=== PATIENT | female | born 1955 | race Caucasian/White ===

== ENCOUNTER → 2016-08-30 | Outpatient (CLI) | payer OTHER ==
[~2016-08-30] VITALS: Ht 157.5 cm; Wt 60.0 kg
[~2016-08-30] MED LIST: ACET65TA; CALC500T49 PO; ECOT325T5; IBUP200C PO; LEVA500T OR; LIDOCAINE 2% INJ 100 MG/5 ML SDV (FOR ANES.) As Ordered ONE; LR 1,000 ML IV SCH; PERC7.5T8 OR; PRAV40TA; PRAV40TA2 PO; PRIL20CA; PROPOFOL 200 MG/20 ML VIAL As Ordered ONE; TUMS500C PO; VITA100037 PO; [UNRECOGNIZED DRUG - OTHER] PO; fentaNYL 100 MCG/2 ML INJECTION (J3010) As Ordered ONE
--- NOTE | 2016-08-30 08:10 | ROOR ---
Patient Name: Inna Liu Procedure Date: 08/30/2016 7:29 AM Date of : 1955 Age: 60 Room: OP Gender: Female Note Status: Finalized Procedure: Upper GI endoscopy Indications: Nausea Providers: Navi Winchester MD Referring MD: ANA ESCAMILLA MD Requesting Provider: Medicines: Monitored Anesthesia Care Complications: No immediate complications. Procedure: Pre-Anesthesia Assessment: - Prior to the procedure, a History and Physical was performed, and patient medications and allergies were reviewed. The patient is competent. The risks and benefits of the procedure and the sedation options and risks were discussed with the patient. All questions were answered and informed consent was obtained. Patient identification and proposed procedure were verified by the physician, the nurse and the anesthesiologist in the procedure room. Mental Status Examination: alert and oriented. Airway Examination: normal oropharyngeal airway and neck mobility. CV Examination: regular rate and rhythm. Prophylactic Antibiotics: The patient does not require prophylactic antibiotics. Prior Anticoagulants: The patient has taken no previous anticoagulant or antiplatelet agents. ASA Grade Assessment: II - A patient with mild systemic disease. After reviewing the risks and benefits, the patient was deemed in satisfactory condition to undergo the procedure. The anesthesia plan was to use monitored anesthesia care (MAC). Immediately prior to administration of medications, the patient was re-assessed for adequacy to receive sedatives. The heart rate, respiratory rate, oxygen saturations, blood pressure, adequacy of pulmonary ventilation, and response to care were monitored throughout the procedure. The physical status of the patient was re-assessed after the procedure. The Endoscope was introduced through the mouth, and advanced to the third part of duodenum. The upper GI endoscopy was accomplished without difficulty. The patient tolerated the procedure well. Findings: The Z-line was regular and was found 30 cm from the incisors. A 5 cm hiatus hernia was present. Evidence of a Aj fundoplication was found at the gastroesophageal junction. The wrap appeared loose. This was traversed. The gastric body, prepyloric region of the stomach and pylorus were normal. The examined duodenum was normal. Impression: - Z-line regular, 30 cm from the incisors. - 5 cm hiatus hernia. - A Aj fundoplication was found. The wrap appears loose. - Normal gastric body, prepyloric region of the stomach and pylorus. - Normal examined duodenum. - No specimens collected. Recommendation: - Discharge patient to home. - Resume regular diet. Navi Winchester MD 08/30/2016 8:10:14 AM Number of Addenda: 0 Note Initiated On: 08/30/2016 7:29 AM Estimated Blood Loss: Estimated blood loss: none.
[2016-08-30 08:15] VITALS: BP 125/86
== END ==
LOC: M OPP 06:34
PROVIDERS: ATTEND Surgery
DX: R11.0 Nausea (principal); K44.9 Diaphragmatic hernia without obstruction or gangrene; R10.33 Periumbilical pain; E78.5 Hyperlipidemia, unspecified; Z98.890 Other specified postprocedural states; Z85.3 Personal history of malignant neoplasm of breast; Z92.3 Personal history of irradiation; Z87.19 Personal history of other diseases of the digestive system; Z80.1 Family history of malignant neoplasm of trachea, bronchus and lung; Z80.8 Family history of malignant neoplasm of other organs or systems; Z87.891 Personal history of nicotine dependence; Z88.0 Allergy status to penicillin; Z88.5 Allergy status to narcotic agent; Z88.2 Allergy status to sulfonamides
CPT/HCPCS: 43235; J3010

== ENCOUNTER → 2016-09-12 | Outpatient (CLI) | payer OTHER ==
[~2016-09-12] MED LIST changes: -LIDOCAINE 2% INJ 100 MG/5 ML SDV (FOR ANES.) As Ordered ONE; -LR 1,000 ML IV SCH; -PROPOFOL 200 MG/20 ML VIAL As Ordered ONE; -fentaNYL 100 MCG/2 ML INJECTION (J3010) As Ordered ONE
--- NOTE | 2016-09-12 09:34 | REPMRS ---
Patient History The patient states she had a clinical breast exam in 2015.Patient has history of cancer in the left breast at age 57 and has history of high-risk lesion on a previous biopsy at age 57. Family history of unknown cancer in father at age 50 or over and unknown cancer in 2 brothers at age 50 or over. High risk radio exam breast specimen, August 12, 2013. High risk localization of breast nodule of the left breast, August 12, 2013. Malignant radio exam breast specimen of the left breast, July 17, 2013. Malignant stereotatic loc for ea lesion of the left breast, July 17, 2013. Digital Mammo Screening Bilat: September 12, 2016 - Exam #: [id number] Bilateral CC and MLO view(s) were taken. Technologist: Shannan Liu Technologist Prior study comparison: September 07, 2015, bilateral digital mammo screening bilat performed at [facility]. September 09, 2014, digital mammo diagnostic bilateral performed at [facility]. March 14, 2014, digital mammo diagnostic bilateral performed at [facility]. FINDINGS: There are scattered fibroglandular densities. There has been no change in the appearance of the mammogram from the prior studies. There are stable post treatment changes in the left breast. There is a mild amount of scattered fibroglandular density which is fairly symmetric. There is no interval development of dominant mass, architectural distortion, or clustered microcalcification suggestive of malignancy. ASSESSMENT: BI-RADS/ACR category 1 mammogram. Negative. Recommendation Routine screening mammogram in 1 year (for women over age 40). This mammogram was interpreted with the aid of an FDA-approved computer-aided dectection system. Electronically Signed By: Rinku Wilkerson MD 09/12/16 0934
== END ==
LOC: M RAD 08:20
PROVIDERS: ATTEND Radiology Radiation Oncology
DX: Z12.31 Encounter for screening mammogram for malignant neoplasm of breast (principal); Z85.3 Personal history of malignant neoplasm of breast

== ENCOUNTER → 2016-09-12 | Outpatient (CLI) | payer OTHER | LOC: M ONCR 13:28 | PROVIDERS: ATTEND Radiology Radiation Oncology | DX: D05.12 Intraductal carcinoma in situ of left breast (principal) ==

== ENCOUNTER → 2017-01-13 | Outpatient (CLI) | payer OTHER ==
[2017-01-13 17:57] LABS: MEAN CORPUSCULAR HEMOGLOBIN 30.5 pg (27.0-33.0); MEAN CORPUSCULAR HGB CONC 32.3 g/dl (32.0-36.5); MEAN CORPUSCULAR VOLUME 94.4 fl (80.0-96.0); RED CELL DISTRIBUTION WIDTH 12.5 % (11.5-14.5); WHITE BLOOD COUNT 5.8 K/mm3 (4.0-10.0)
[2017-01-13 18:22] LABS: ALBUMIN 3.8 GM/DL (3.2-5.2); ALBUMIN/GLOBULIN RATIO 1.41 (1.00-1.93); ALKALINE PHOSPHATASE 108 U/L (45-117); ALT/SGPT 48 U/L (12-78); ANION GAP 7 MEQ/L (8-16); AST/SGOT 22 U/L (15-37); BILIRUBIN,TOTAL 0.4 MG/DL (0.2-1.0); BLOOD UREA NITROGEN 12 MG/DL (7-18); CALCIUM LEVEL 8.8 MG/DL (8.8-10.2); CARBON DIOXIDE LEVEL 28 MEQ/L (21-32); CHLORIDE LEVEL 109 MEQ/L (98-107); CHOLESTEROL LEVEL 169 MG/DL (<200); CREATININE FOR GFR 0.92 MG/DL (0.55-1.02); GLOMERULAR FILTRATION RATE > 60.0 (>45); GLUCOSE, FASTING 73 MG/DL (80-110); POTASSIUM SERUM 4.7 MEQ/L (3.5-5.1); SODIUM LEVEL 144 MEQ/L (136-145); TOTAL PROTEIN 6.5 GM/DL (6.4-8.2); TRIGLYCERIDES LEVEL 56 MG/DL (<150)
== END ==
LOC: M WUC 11:30
PROVIDERS: ATTEND Nurse Practitioner Family
DX: I10 Essential (primary) hypertension (principal); E55.9 Vitamin D deficiency, unspecified

== ENCOUNTER → 2017-03-08 | Outpatient (CLI) | payer OTHER ==
[~2017-03-08] MED LIST changes: -IBUP200C PO; +IBUP200C10 PO; -VITA100037 PO; +VITA100067 PO
--- NOTE | 2017-03-08 14:56 | RADONC ---
RADIATION ONCOLOGY FOLLOWUP NOTE DATE: 03/08/2017 CHART NUMBER: [id number] DIAGNOSIS: Left breast cancer. STAGE: 0, [id number]. ECOG PERFORMANCE STATUS: 0 FOLLOWUP NOTE: Ms. 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 The patient presents today reporting that she is doing quite well with no complaints at this time related to her radiation therapy or disease. She has no breast or bone pain. REVIEW OF SYSTEMS: The patient's review of systems is noncontributory. She denies nausea, vomiting, fevers, chills, night sweats, diplopia, headaches, anxiety or depression, anorexia, weight loss, visual disturbances, chest pain, urinary or bowel difficulties, bone pain, or neurological problems. PHYSICAL EXAMINATION: The patient is a well-developed, well-nourished white female in no acute distress. HEENT exam is normocephalic, atraumatic. Extraocular movements are intact. There is no palpable cervical, supraclavicular, infraclavicular, axillary, or inguinal lymphadenopathy present. Lungs are clear to auscultation and percussion. Heart has a regular rate and rhythm. Abdomen is benign with no hepatosplenomegaly, masses, or tenderness. Breast examination reveals no masses or discharge bilaterally. Skeletal examination reveals no tenderness to pressure or percussion of the bony skeleton. Extremities reveal no clubbing, cyanosis, or edema. Neurologic exam is grossly intact, as is the remainder of the physical examination. ASSESSMENT: The patient is clinically MITA at this time and was seen by us again in 6 months for further followup. She will also continue to be followed by her other physicians as well. cc: MD Navi Shepherd MD Amjab Sheikh, MD
== END ==
LOC: M ONCR 13:13
PROVIDERS: ATTEND Radiology Radiation Oncology
DX: Z09 Encounter for follow-up examination after completed treatment for conditions other than malignant neoplasm (principal); Z85.3 Personal history of malignant neoplasm of breast

== ENCOUNTER 2017-07-14 07:40 | Day surgery (SDC) | payer OTHER ==
[~2017-07-14] VITALS: Ht 157.5 cm; Wt 60.4 kg
[~2017-07-14 07:40] MED LIST changes: +PRAV20TA2 PO
[2017-07-14 08:30] LABS: MEAN CORPUSCULAR HEMOGLOBIN 29.8 pg (27.0-33.0); MEAN CORPUSCULAR HGB CONC 32.8 g/dl (32.0-36.5); MEAN CORPUSCULAR VOLUME 90.9 fl (80.0-96.0); PLATELET COUNT, AUTOMATED 234 10^3/uL (150-450); RED CELL DISTRIBUTION WIDTH 12.7 % (11.5-14.5); WHITE BLOOD COUNT 7.2 10^3/uL (4.0-10.0)
[2017-07-14] MEDS ORDERED: CEFAZOLIN SOD 1 GM in APPROPRIATE DILUENT 1 EA IV ONE (08:30)
[2017-07-14 08:45] LABS: ANION GAP 10 MEQ/L (8-16); BLOOD UREA NITROGEN 21 MG/DL (7-18); CALCIUM LEVEL 9.9 MG/DL (8.8-10.2); CARBON DIOXIDE LEVEL 28 MEQ/L (21-32); CHLORIDE LEVEL 107 MEQ/L (98-107); CREATININE FOR GFR 0.88 MG/DL (0.55-1.02); GLOMERULAR FILTRATION RATE > 60.0 (>45); GLUCOSE, FASTING 96 MG/DL (80-110); POTASSIUM SERUM 4.5 MEQ/L (3.5-5.1); SODIUM LEVEL 145 MEQ/L (136-145)
[2017-07-14] MEDS ORDERED: ACETAMINOPHEN 650 MG SUPP PR ONE (08:45)
[2017-07-14] MEDS ORDERED: PROPOFOL 200 MG/20 ML VIAL As Ordered ONE (09:20)
[2017-07-14] MEDS ORDERED: fentaNYL 100 MCG/2 ML INJECTION (J3010) As Ordered ONE (09:20)
[2017-07-14] MEDS ORDERED: LIDOCAINE 2% INJ 100 MG/5 ML SDV (FOR ANES.) As Ordered ONE (09:20)
[2017-07-14] MEDS ORDERED: MIDAZOLAM INJ 2 MG/2 ML VIAL (J2250) As Ordered ONE (09:20)
[2017-07-14] MEDS ORDERED: ACETAMINOPHEN 650 MG SUPP As Ordered ONE (09:21)
[2017-07-14] MEDS ORDERED: dexameTHASONE 4 MG/ML 1ML VIAL (J1100) As Ordered ONE (09:29)
[2017-07-14] MEDS ORDERED: ONDANSETRON 4MG/2ML VIAL (J2405) As Ordered ONE (09:29)
[2017-07-14] MEDS ORDERED: KETOROLAC 60 MG/2 ML VIAL (J1885) As Ordered ONE (09:36)
[2017-07-14] MEDS ORDERED: LIDOCAINE W/EPINEPHRINE 1% 20ML VIAL As Ordered ONE (09:37)
[2017-07-14] MEDS ORDERED: PERC5TAB12 PO (09:41)
[2017-07-14] MEDS ORDERED: MACR100C42 PO (09:41)
[2017-07-14] MEDS ORDERED: ePHEDrine SULFATE 25 MG/5 ML(5MG/ML) SYRINGE As Ordered ONE (09:46)
[2017-07-14] MEDS ORDERED: ONDANSETRON 4MG/2ML VIAL (J2405) IV PRN (11:15)
[2017-07-14] MEDS ORDERED: LR 1,000 ML IV SCH (11:15)
[2017-07-14] MEDS ORDERED: PERCOCET 5MG/325MG TAB PO PRN (11:15)
[2017-07-14] MEDS ORDERED: fentaNYL 100 MCG/2 ML INJECTION (J3010) IV PRN (11:15)
[2017-07-14 12:33] VITALS: BP 105/56
[2017-07-14] MEDS ORDERED: IBUPROFEN 800 MG TAB PO SCH (16:00)
--- NOTE | 2017-07-14 17:34 | RO ---
DATE OF PROCEDURE: 07/14/2017 Inna is a 61-year-old female with an extensive history of stress urinary incontinence and found to have significant cystocele on exam. After evaluation in the office with extensive counseling a decision was made for tension-free vaginal tape via an obturator approach. Cystoscopy and repair of the anterior vaginal wall. PREOPERATIVE DIAGNOSES: 1. Stress urinary incontinence. 2. Significant cystocele. POSTOPERATIVE DIAGNOSIS 2. Stress urinary incontinence. 2. Significant cystocele. PROCEDURES: 1. Tension-free vaginal taping via an obturator approach. 2. Cystoscopy. 3. Vaginal wall repair. ANESTHESIA: General. SURGEON: Dr. Juan Dickey COMPLICATIONS: None. ESTIMATED BLOOD LOSS: Less than 50 mL. PROCEDURE: After visiting with the patient and her family in the preop area. She was then taken to the operating room where general anesthetic was found to be adequate. She was then draped and prepped usual sterile fashion in dorsal lithotomy position. At this point a Callaway catheter was placed in the bladder and approximately 200 mL of clear urine was drained. We then placed a line at the level of the urethral meatus and a second line 2 cm above that line parallel fashion. The exit aurora for the TVT device was then marked 2 cm away from the inguinal fold. These areas was infiltrated with lidocaine epinephrine solution. We then placed two Allis at the apex of the vagina and one other Allis approximately 2-3 cm away from the urethral meatus. At this point that area was infiltrated with the operative lidocaine and epinephrine. Midline incision was made. The vaginal mucosa was then dissected off the bladder. The bladder was pushed anteriorly and medially and that area was imbricated using 2-0 Vicryl suture in [id number] fashion. At this point a Metzenbaum was used in a 45 degrees angle. The obturator foramen was punctured. We then placed a wing guide of the TVT device and the TVT device was then inserted and exited at the predetermined garcia. At this point a cystoscopy was performed. No evidence of any bladder injury was noted. The bladder was re-dranined and the opposite side done in similar fashion. Cystoscopy again performed. No evidence of any injury noted. At this point the TVT device was then adjusted. The mass suggested that with pressure placed on the bladder. After proper adjustment of the mesh ,the plastic sheath was removed and the excess mesh was then cut away. The vaginal mucosa was trimmed and the anterior vaginal mucosa was closed in an interrupted fashion using 2-0 Vicryl. Good hemostasis noted. Dermabond placed at the exit aurora of the TVT of the device and the lateral folds. The Callaway catheter was placed in the bladder. The bladder was drained and the Callaway catheter removed. The patient was then transferred to recovery room in stable condition.
== END 2017-07-14 12:45 | disposition home or self-care (01) ==
LOC: M SDC 07:40
PROVIDERS: ATTEND Obstetrics & Gynecology
DX: N39.3 Stress incontinence (female) (male) (principal); N81.10 Cystocele, unspecified; E78.5 Hyperlipidemia, unspecified; Z92.3 Personal history of irradiation; Z88.0 Allergy status to penicillin; Z88.2 Allergy status to sulfonamides; Z88.5 Allergy status to narcotic agent; Z79.899 Other long term (current) drug therapy
CPT/HCPCS: 36415; 57240; 57288; 80048; 85027; 86850; 86900; 86901; 88302; C1771; J0690; J1100; J1885; J2250; J2405; J3010

== ENCOUNTER → 2017-09-04 | Outpatient (CLI) | payer OTHER ==
[2017-09-04 13:33] LABS: BASO # 0.1 10^3/uL (0.0-0.2); BASO % 1.3 % (0.0-1.0); EOS # 0.4 10^3/uL (0.0-0.50); EOS % 6.1 % (0.0-3.0); HEMATOCRIT 41.3 % (36.0-47.0); HEMOGLOBIN 13.5 g/dl (12.0-16.0); IMMATURE GRANULOCYTE % 0.3 % (0-0); LYMPH # 1.6 10^3/uL (1.5-4.5); LYMPH % 26.9 % (24.0-44.0); MEAN CORPUSCULAR HEMOGLOBIN 30.2 pg (27.0-33.0); MEAN CORPUSCULAR HGB CONC 32.7 g/dl (32.0-36.5); MEAN CORPUSCULAR VOLUME 92.4 fl (80.0-96.0); MONO # 0.5 10^3/uL (0.0-0.8); MONO % 8.3 % (0.0-5.0); NEUTROPHILS # 3.4 10^3/uL (1.8-7.7); NEUTROPHILS % 57.1 % (36.0-66.0); PLATELET COUNT, AUTOMATED 239 10^3/uL (150-450); RED BLOOD COUNT 4.47 10^6/uL (4.00-5.40); RED CELL DISTRIBUTION WIDTH 12.6 % (11.5-14.5)
[2017-09-04 13:42] LABS: ALBUMIN 3.9 GM/DL (3.2-5.2); ALKALINE PHOSPHATASE 103 U/L (45-117); ALT/SGPT 28 U/L (12-78); ANION GAP 7 MEQ/L (8-16); AST/SGOT 23 U/L (7-37); BILIRUBIN,TOTAL 0.4 MG/DL (0.2-1.0); BLOOD UREA NITROGEN 13 MG/DL (7-18); CALCIUM LEVEL 8.4 MG/DL (8.8-10.2); CARBON DIOXIDE LEVEL 27 MEQ/L (21-32); CHLORIDE LEVEL 109 MEQ/L (98-107); CHOLESTEROL LEVEL 153 MG/DL (<200); CHOLESTEROL RISK RATIO 2.508 (<5); CREATININE FOR GFR 0.82 MG/DL (0.55-1.02); GLOMERULAR FILTRATION RATE > 60.0 (>45); GLUCOSE, FASTING 89 MG/DL (80-110); HDL CHOLESTEROL 61 MG/DL (>40); LDL CHOLESTEROL 79.8 MG/DL (<100); NON-HDL-C 92 MG/DL; POTASSIUM SERUM 4.5 MEQ/L (3.5-5.1); SODIUM LEVEL 143 MEQ/L (136-145); TOTAL PROTEIN 6.5 GM/DL (6.4-8.2); TRIGLYCERIDES LEVEL 61 MG/DL (<150)
[2017-09-04 13:59] LABS: TOTAL 25(OH) VITAMIN D 33.7 NG/ML (30.0-100.0)
[2017-09-04 15:02] LABS: ESTIMATED AVERAGE GLUCOSE 117 MG/DL (60-110); HEMOGLOBIN A1c 5.7 %
== END ==
LOC: M WUC 09:20
DX: E78.00 Pure hypercholesterolemia, unspecified (principal)

== ENCOUNTER → 2017-09-06 | Outpatient (CLI) | payer OTHER | LOC: M ONCR 13:04 | DX: Z08 Encounter for follow-up examination after completed treatment for malignant neoplasm (principal); Z85.3 Personal history of malignant neoplasm of breast | CPT/HCPCS: G0463 ==

== ENCOUNTER → 2017-09-14 | Outpatient (CLI) | payer OTHER | LOC: M WHC 14:51 | DX: M81.0 Age-related osteoporosis without current pathological fracture (principal) ==

== ENCOUNTER → 2017-09-22 | Outpatient (CLI) | payer OTHER | LOC: M RAD 08:33 | DX: Z12.31 Encounter for screening mammogram for malignant neoplasm of breast (principal) | CPT/HCPCS: 77067 ==

== ENCOUNTER → 2018-03-07 | Outpatient (CLI) | payer OTHER | LOC: M ONCR 13:35 | DX: D05.12 Intraductal carcinoma in situ of left breast (principal) | CPT/HCPCS: G0463 ==

== ENCOUNTER → 2018-05-31 | Outpatient (CLI) | payer OTHER ==
[2018-06-01 12:51] LABS: RUBELLA IgG QUALITATIVE IMMUNE (IMMUNE)
== END ==
LOC: M WUC 13:07
DX: Z02.1 Encounter for pre-employment examination (principal)
CPT/HCPCS: 86762

== ENCOUNTER → 2018-06-04 | Outpatient (CLI) | payer OTHER ==
[2018-06-04 12:53] LABS: BASO # 0.1 10^3/uL (0.0-0.2); BASO % 1.2 % (0.0-1.0); EOS # 0.3 10^3/uL (0.0-0.50); EOS % 4.5 % (0.0-3.0); HEMATOCRIT 42.3 % (36.0-47.0); HEMOGLOBIN 13.6 g/dl (12.0-15.5); IMMATURE GRANULOCYTE % 0.3 % (0-3.0); LYMPH # 1.6 10^3/uL (1.5-4.5); LYMPH % 24.4 % (24.0-44.0); MEAN CORPUSCULAR HEMOGLOBIN 29.7 pg (27.0-33.0); MEAN CORPUSCULAR HGB CONC 32.2 g/dl (32.0-36.5); MEAN CORPUSCULAR VOLUME 92.4 fl (80.0-96.0); MONO # 0.6 10^3/uL (0.0-0.8); MONO % 9.2 % (0.0-5.0); NEUTROPHILS % 60.4 % (36.0-66.0); PLATELET COUNT, AUTOMATED 239 10^3/uL (150-450); RED BLOOD COUNT 4.58 10^6/uL (4.00-5.40); RED CELL DISTRIBUTION WIDTH 13.2 % (11.5-14.5); WHITE BLOOD COUNT 6.6 10^3/uL (4.0-10.0)
[2018-06-04 13:28] LABS: ALBUMIN 3.7 GM/DL (3.2-5.2); ALBUMIN/GLOBULIN RATIO 1.28 (1.00-1.93); ALKALINE PHOSPHATASE 90 U/L (45-117); ALT/SGPT 23 U/L (12-78); ANION GAP 7 MEQ/L (8-16); AST/SGOT 20 U/L (7-37); BILIRUBIN,TOTAL 0.5 MG/DL (0.2-1.0); BLOOD UREA NITROGEN 16 MG/DL (7-18); CALCIUM LEVEL 8.4 MG/DL (8.8-10.2); CARBON DIOXIDE LEVEL 26 MEQ/L (21-32); CHLORIDE LEVEL 111 MEQ/L (98-107); CHOLESTEROL LEVEL 146 MG/DL (<200); CHOLESTEROL RISK RATIO 2.517 (<5); CREATININE FOR GFR 0.82 MG/DL (0.55-1.30); GLOMERULAR FILTRATION RATE > 60.0 (>45); GLUCOSE, FASTING 76 MG/DL (70-100); HDL CHOLESTEROL 58 MG/DL (>40); LDL CHOLESTEROL 76 MG/DL (<100); NON-HDL-C 88 MG/DL; POTASSIUM SERUM 4.5 MEQ/L (3.5-5.1); SODIUM LEVEL 144 MEQ/L (136-145); TOTAL PROTEIN 6.6 GM/DL (6.4-8.2); TRIGLYCERIDES LEVEL 60 MG/DL (<150)
== END ==
LOC: M WUC 10:15
DX: R53.83 Other fatigue (principal); I10 Essential (primary) hypertension; E78.2 Mixed hyperlipidemia; E55.9 Vitamin D deficiency, unspecified
CPT/HCPCS: 84443

== ENCOUNTER → 2018-07-06 | Outpatient (REF) | payer OTHER ==
[2018-07-06 14:11] LABS: APPEARANCE, URINE CLEAR (CLEAR); BACTERIA, URINE AUTO NEGATIVE (NEGATIVE); BILIRUBIN, URINE AUTO NEGATIVE (NEGATIVE); BLOOD, URINE BLOOD NEGATIVE (NEGATIVE); COLOR, URINE YELLOW (YELLOW); GLUCOSE, URINE (UA) AUTO NEGATIVE (NEGATIVE); KETONE, URINE AUTO NEGATIVE (NEGATIVE); LEUKOCYTE ESTERASE, URINE AUTO 1+ (NEGATIVE); MUCUS, URINE SMALL (NEGATIVE); NITRITE, URINE AUTO NEGATIVE (NEGATIVE); PROTEIN, URINE AUTO NEGATIVE (NEGATIVE); RBC, URINE AUTO 1 /HPF (0-3); SPECIFIC GRAVITY URINE AUTO 1.017 (1.002-1.035); SQUAMOUS EPITHELIAL CELL UR AU 1 /HPF (0-6); WBC, URINE AUTO 5 /HPF (0-3)
== END ==
LOC: M LAB REF 13:16
DX: N39.0 Urinary tract infection, site not specified (principal)

== ENCOUNTER → 2018-09-24 | Outpatient (CLI) | payer MEDICARE, OTHER ==
[~2018-09-24] MED LIST changes: -IBUP200C10 PO; +IBUP200C25 PO; +MACR100C42 PO; +PERC5TAB12 PO
--- NOTE | 2018-09-24 09:39 | REPMRS ---
Patient History The patient states she had a clinical breast exam in 2017. Family history of pancreatic cancer at age 50 or over in brother. High risk radio exam breast specimen, August 12, 2013. High risk localization of breast nodule of the left breast, August 12, 2013. Malignant radio exam breast specimen of the left breast, July 17, 2013. Malignant stereotatic loc for ea lesion of the left breast, July 17, 2013. Took tamoxifen for 2 months. 3D TOMOSYNTHESIS WAS PERFORMED. Digital Mammo Screening Bilat: September 24, 2018 - Exam #: [id number] Bilateral CC and MLO view(s) were taken. Technologist: Payal Andujar, Technologist Prior study comparison: September 22, 2017, bilateral digital mammo screening bilat performed at [facility]. September 12, 2016, bilateral digital mammo screening bilat performed at [facility]. FINDINGS: There are scattered fibroglandular densities. There is a fairly symmetric fibroglandular pattern in both breasts. There has been no interval development of masses, areas of architectural distortion or clusters of microcalcifications typical of malignancy. Assessment: BI-RADS/ACR category 2 mammogram. Benign Findings. Recommendation Routine screening mammogram of both breasts in 1 year (for women over age 40). This mammogram was interpreted with the aid of an FDA-approved computer-aided dectection system. Electronically Signed By: Edgar De La Torre MD 09/24/18 0939
== END ==
LOC: M RAD 08:48
PROVIDERS: ATTEND Physician Assistant Medical
DX: Z12.31 Encounter for screening mammogram for malignant neoplasm of breast (principal); Z80.0 Family history of malignant neoplasm of digestive organs; Z85.3 Personal history of malignant neoplasm of breast

== ENCOUNTER → 2018-11-20 | Outpatient (CLI) | payer MEDICARE ==
--- NOTE | 2018-11-20 16:45 | REP ---
Clinical: Trauma. Technique: AP, lateral, bilateral oblique and sunrise views right knee . Findings: Generalized age-related changes are appreciated. The osseous structures and joint spaces are intact. There is no evidence for acute fracture or dislocation. No joint effusion is appreciated. Surrounding soft tissues are unremarkable. No subcutaneous emphysema or radiodense foreign body. Impression: Generalized age-related changes. No acute fracture or dislocation. Electronically Signed by Calvin Foster MD 11/20/2018 04:36 P
== END ==
LOC: M WUC 16:20
PROVIDERS: ATTEND Physician Assistant
DX: S80.01XA Contusion of right knee, initial encounter (principal); X58.XXXA Exposure to other specified factors, initial encounter; Y92.9 Unspecified place or not applicable

== ENCOUNTER → 2019-02-18 | Outpatient (CLI) | payer MEDICARE, OTHER ==
[2019-02-18 13:13] LABS: BASO # 0.1 10^3/uL (0.0-0.2); BASO % 1.3 % (0.0-1.0); EOS # 0.4 10^3/uL (0.0-0.50); EOS % 6.5 % (0.0-3.0); HEMATOCRIT 41.1 % (36.0-47.0); HEMOGLOBIN 13.2 g/dl (12.0-15.5); LYMPH # 1.8 10^3/uL (1.5-4.5); LYMPH % 29.5 % (24.0-44.0); MEAN CORPUSCULAR HEMOGLOBIN 29.3 pg (27.0-33.0); MEAN CORPUSCULAR HGB CONC 32.1 g/dl (32.0-36.5); MEAN CORPUSCULAR VOLUME 91.1 fl (80.0-96.0); MONO # 0.5 10^3/uL (0.0-0.8); NEUTROPHILS # 3.2 10^3/uL (1.8-7.7); NEUTROPHILS % 53.4 % (36.0-66.0); PLATELET COUNT, AUTOMATED 239 10^3/uL (150-450); RED BLOOD COUNT 4.51 10^6/uL (4.00-5.40)
[2019-02-18 13:30] LABS: ALBUMIN 3.6 GM/DL (3.2-5.2); ALT/SGPT 27 U/L (12-78); BILIRUBIN,TOTAL 0.4 MG/DL (0.2-1.0); BLOOD UREA NITROGEN 14 MG/DL (7-18); CALCIUM LEVEL 8.7 MG/DL (8.8-10.2); CARBON DIOXIDE LEVEL 27 MEQ/L (21-32); CHLORIDE LEVEL 110 MEQ/L (98-107); CHOLESTEROL LEVEL 148 MG/DL (<200); CHOLESTEROL RISK RATIO 2.349 (<5); CREATININE FOR GFR 0.79 MG/DL (0.55-1.30); GLOMERULAR FILTRATION RATE > 60.0 (>45); GLUCOSE, FASTING 75 MG/DL (70-100); HDL CHOLESTEROL 63 MG/DL (>40); LDL CHOLESTEROL 75 MG/DL (<100); NON-HDL-C 85 MG/DL; POTASSIUM SERUM 4.6 MEQ/L (3.5-5.1); SODIUM LEVEL 142 MEQ/L (136-145); TOTAL PROTEIN 6.6 GM/DL (6.4-8.2); TRIGLYCERIDES LEVEL 50 MG/DL (<150)
== END ==
LOC: M WUC 09:38
PROVIDERS: ATTEND Physician Assistant Medical
DX: R53.83 Other fatigue (principal); I10 Essential (primary) hypertension; E78.2 Mixed hyperlipidemia

== ENCOUNTER → 2019-10-04 | Outpatient (CLI) | payer MEDICARE, OTHER ==
--- NOTE | 2019-10-04 15:02 | REPMRS ---
Patient History The patient states she has not had a clinical breast exam in over a year. Family history of pancreatic cancer at age 50 or over in brother. High risk radio exam breast specimen, August 12, 2013. High risk localization of breast nodule of the left breast, August 12, 2013. Malignant radio exam breast specimen of the left breast, July 17, 2013. Malignant stereotatic loc for ea lesion of the left breast, July 17, 2013. Took tamoxifen for 2 months. Digital Woman Screen Mammo: October 04, 2019 - Exam #: [id number] Bilateral CC and MLO view(s) were taken. Technologist: Payal Andujar, Technologist Prior study comparison: September 24, 2018, bilateral digital mammo screening bilat, performed at [facility]. September 22, 2017, bilateral digital mammo screening bilat, performed at [facility]. September 12, 2016, bilateral digital mammo screening bilat, performed at [facility]. FINDINGS: There are scattered fibroglandular densities. Stable post-treatment changes are noted on the left. There has been no change in the appearance of the mammogram from the prior studies. There is a mild amount of scattered fibroglandular density which is fairly symmetric. There is no interval development of dominant mass, architectural distortion, or grouped microcalcification suggestive of malignancy. 3-D tomosynthesis shows no additional findings. Assessment: BI-RADS/ACR category 2 mammogram. Benign Findings. Recommendation Routine screening mammogram of both breasts in 1 year (for women over age 40). This mammogram was interpreted with the aid of an FDA-approved computer-aided dectection system. Electronically Signed By: Rinku Wilkerson MD 10/04/19 [id number]
== END ==
LOC: M WHC 13:49
PROVIDERS: ATTEND Physician Assistant Medical
DX: Z12.31 Encounter for screening mammogram for malignant neoplasm of breast (principal)

== ENCOUNTER → 2020-02-21 | Outpatient (CLI) | payer MEDICARE, OTHER ==
[2020-02-21 11:55] LABS: BASO # 0.1 10^3/uL (0.0-0.2); BASO % 1.4 % (0.0-1.0); EOS # 0.4 10^3/uL (0.0-0.5); EOS % 4.9 % (0.0-3.0); HEMATOCRIT 41.8 % (36.0-47.0); HEMOGLOBIN 13.7 g/dl (12.0-15.5); LYMPH # 1.7 10^3/uL (1.5-5.0); LYMPH % 22.5 % (24.0-44.0); MEAN CORPUSCULAR HEMOGLOBIN 30.2 pg (27.0-33.0); MEAN CORPUSCULAR HGB CONC 32.8 g/dl (32.0-36.5); MEAN CORPUSCULAR VOLUME 92.3 fl (80.0-96.0); MONO # 0.8 10^3/uL (0.0-0.8); MONO % 10.1 % (0.0-5.0); NEUTROPHILS # 4.5 10^3/uL (1.5-8.5); PLATELET COUNT, AUTOMATED 237 10^3/uL (150-450); RED BLOOD COUNT 4.53 10^6/uL (4.00-5.40); WHITE BLOOD COUNT 7.4 10^3/uL (4.0-10.0)
[2020-02-21 12:45] LABS: ALBUMIN 3.6 GM/DL (3.2-5.2); ALT/SGPT 25 U/L (12-78); BILIRUBIN,TOTAL 0.4 MG/DL (0.2-1.0); BLOOD UREA NITROGEN 15 MG/DL (7-18); CARBON DIOXIDE LEVEL 28 MEQ/L (21-32); CHLORIDE LEVEL 111 MEQ/L (98-107); CHOLESTEROL LEVEL 155 MG/DL (<200); CHOLESTEROL RISK RATIO 2.421 (<5); CREATININE FOR GFR 0.92 MG/DL (0.55-1.30); FREE T4 0.89 NG/DL (0.76-1.46); GLOMERULAR FILTRATION RATE > 60.0 (>45); GLUCOSE, FASTING 81 MG/DL (70-100); HDL CHOLESTEROL 64 MG/DL (>40); LDL CHOLESTEROL 80 MG/DL (<100); NON-HDL-C 91 MG/DL; POTASSIUM SERUM 4.5 MEQ/L (3.5-5.1); SODIUM LEVEL 144 MEQ/L (136-145); TOTAL PROTEIN 6.4 GM/DL (6.4-8.2); TRIGLYCERIDES LEVEL 55 MG/DL (<150)
== END ==
LOC: M WUC 09:30
PROVIDERS: ATTEND Physician Assistant Medical
DX: R53.83 Other fatigue (principal); I10 Essential (primary) hypertension; E78.2 Mixed hyperlipidemia; Z79.899 Other long term (current) drug therapy

== ENCOUNTER → 2020-10-09 | Outpatient (CLI) | payer MEDICARE, OTHER ==
--- NOTE | 2020-10-09 11:06 | REPMRS ---
Patient History The patient states she has not had a clinical breast exam in over a year. Family history of pancreatic cancer at age 50 or over in brother. High risk radio exam breast specimen, August 12, 2013. High risk localization of breast nodule of the left breast, August 12, 2013. Malignant radio exam breast specimen of the left breast, July 17, 2013. Malignant stereotatic loc for ea lesion of the left breast, July 17, 2013. Took tamoxifen for 2 months. Digital Woman Screen Mammo: October 09, 2020 - Exam #: [id number] Bilateral CC and MLO view(s) were taken. Technologist: Daxa Mojica, Technologist Prior study comparison: October 04, 2019, bilateral digital woman screen mammo performed at [facility]. September 24, 2018, bilateral digital mammo screening bilat, performed at [facility]. September 22, 2017, bilateral digital mammo screening bilat, performed at [facility]. FINDINGS: There are scattered fibroglandular densities. The Volpara volumetric breast density category is:B. There is a 7 mm nodular density in the upper outer quadrant region of the right breast seen only on MLO view. This merits further evaluation. There are stable post treatment changes in the left breast. There has been no other change in the appearance of the mammogram from the prior studies. There is a mild amount of scattered fibroglandular density which is fairly symmetric. There is no other interval development of dominant mass, architectural distortion, or grouped microcalcification suggestive of malignancy. 3-D tomosynthesis shows no additional findings. Assessment: BI-RADS/ACR category 0 mammogram, Incomplete: Need additional imaging evaluation and/or prior mammograms for comparison. Recommendation Ultrasound and special view mammogram of the right breast. This mammogram was interpreted with the aid of an FDA-approved computer-aided dectection system. Electronically Signed By: Rinku Wilkerson MD 10/09/20 2048
== END ==
LOC: M WHC 09:55
PROVIDERS: ATTEND Physician Assistant Medical
DX: Z12.31 Encounter for screening mammogram for malignant neoplasm of breast (principal)

== ENCOUNTER → 2020-10-26 | Outpatient (CLI) | payer MEDICARE, OTHER ==
[2020-10-26 12:31] LABS: BASO # 0.1 10^3/uL (0.0-0.2); BASO % 2.1 % (0.0-1.0); EOS # 0.3 10^3/uL (0.0-0.5); HEMATOCRIT 42.3 % (36.0-47.0); HEMOGLOBIN 13.4 g/dl (12.0-15.5); LYMPH # 1.6 10^3/uL (1.5-5.0); LYMPH % 26.1 % (24.0-44.0); MEAN CORPUSCULAR HEMOGLOBIN 29.6 pg (27.0-33.0); MEAN CORPUSCULAR HGB CONC 31.7 g/dl (32.0-36.5); MEAN CORPUSCULAR VOLUME 93.6 fl (80.0-96.0); MONO # 0.6 10^3/uL (0.0-0.8); MONO % 9.4 % (2.0-8.0); NEUTROPHILS # 3.5 10^3/uL (1.5-8.5); NEUTROPHILS % 57.1 % (36.0-66.0); PLATELET COUNT, AUTOMATED 249 10^3/uL (150-450); RED BLOOD COUNT 4.52 10^6/uL (4.00-5.40); WHITE BLOOD COUNT 6.2 10^3/uL (4.0-10.0)
[2020-10-26 13:11] LABS: ALBUMIN 3.8 GM/DL (3.2-5.2); BILIRUBIN,TOTAL 0.4 MG/DL (0.2-1.0); CALCIUM LEVEL 9.3 MG/DL (8.8-10.2); CHOLESTEROL RISK RATIO 2.387 (<5); FREE T4 0.88 NG/DL (0.76-1.46); GLOMERULAR FILTRATION RATE 58.9 (>45); POTASSIUM SERUM 4.5 MEQ/L (3.5-5.1); THYROID STIMULATING HORMONE 2.23 uIU/ML (0.358-3.740); TOTAL PROTEIN 6.6 GM/DL (6.4-8.2)
== END ==
LOC: M WUC 09:13
PROVIDERS: ATTEND Physician Assistant Medical
DX: E78.2 Mixed hyperlipidemia (principal); I10 Essential (primary) hypertension; R53.83 Other fatigue

== ENCOUNTER → 2020-10-27 | Outpatient (CLI) | payer MEDICARE, OTHER ==
--- NOTE | 2020-10-27 15:46 | REP ---
INDICATION: ADDL VIEWS/RIGHT BREAST/NODULAR DENSITY. COMPARISON: 10/09/2020 as well as other prior exams. TECHNIQUE: Multiple spot compression views and tomographic sequences obtained right breast in various projections. Right breast ultrasound performed. FINDINGS: There is a persistent somewhat ill-defined nodule in the posterior upper outer quadrant of the right breast. This is approximately 9 cm from the nipple. Approximate diameter is 6-7 mm. Real-time sonographic evaluation of right upper outer quadrant demonstrates a hypoechoic nodule, taller than wide, at the 10 o'clock position approximately 9 cm from the nipple. It measures 4 x 7 x 7 mm. This is suspicious. IMPRESSION: BIRADS/ACR category 4 suspicious. Persistent nodule in the upper outer quadrant of the right breast on additional mammographic images, represents a hypoechoic nodule by ultrasound and appears suspicious. Recommend ultrasound-guided biopsy with postprocedure mammogram. This mammogram was interpreted with the aid of an FDA-approved computer-aided detection system. The patient letter being requested is M4. RECOMMENDATION: Recommend ultrasound-guided biopsy right breast nodule with postprocedure right breast mammogram. <Electronically signed by Edgar De La Torre > 10/27/20 2481
== END ==
LOC: M WHC 13:51
PROVIDERS: ATTEND Physician Assistant Medical
DX: Z12.31 Encounter for screening mammogram for malignant neoplasm of breast (principal); R92.8 Other abnormal and inconclusive findings on diagnostic imaging of breast
CPT/HCPCS: 76642; 77065; G0279

== ENCOUNTER → 2020-11-24 | Outpatient (CLI) | payer MEDICARE, OTHER ==
--- NOTE | 2020-11-24 11:10 | REP ---
INDICATION: RT BREAST NODULAR DENSITY,POST US GUIDED BIOPSY. Marker clip placement views. COMPARISON: Comparison mammography October 27, 2020. TECHNIQUE: Craniocaudal, laterally exaggerated craniocaudal, true mL and MLO views are obtained. This mammogram was interpreted with the aid of an FDA-approved computer-aided detection system. FINDINGS: Scattered fibroglandular elements are noted. Marker clip is seen in the upper outer quadrant of the right breast posteriorly where prior mammography showed the subtle nodular density. No hematoma is seen. The nodular density is no longer apparent. IMPRESSION: Marker clip in good position right breast. RECOMMENDATION: Biopsy result pending. <Electronically signed by Rinku Wilkerson > 11/24/20 1101
[2020-11-24 13:51] VITALS: BP 118/78
--- NOTE | 2020-11-24 15:38 | REP ---
INDICATION: RT BREAST NODULAR DENSITY,US GUIDED BIOPSY. COMPARISON: None. TECHNIQUE: The procedure was performed under the direct supervision of Dr. Wilkerson. The patient has a history of a persistent nodule in the upper-outer quadrant of the right breast seen on a previous ultrasound dated 10/27/2020. The risks and benefits of the procedure were explained to the patient and informed consent was obtained. The right breast nodule was localized using ultrasound guidance. The skin was prepped and draped in a sterile fashion. 1% Xylocaine was used as a local anesthetic. Using ultrasound guidance a 14-gauge coaxial needle biopsy system was inserted and6 core biopsy samples were obtained. A marker clip (HydroMARK shape 3) was placed at the biopsy site The patient tolerated the procedure well and there were no immediate complications. After the appropriate amount of monitored convalescence, the patient was discharged from the department. FINDINGS: None IMPRESSION: Ultrasound-guided right breast biopsy with marker clip placement (HydroMARK shape 3). <Electronically signed by Conner Desouza > 11/24/20 [id number] <Electronically signed by Rinku Wilkerson > 11/24/20 3227
== END ==
LOC: M WHCPRO 07:10
PROVIDERS: ATTEND Physician Assistant Medical
DX: D48.61 Neoplasm of uncertain behavior of right breast (principal)

== ENCOUNTER → 2021-01-01 | Outpatient (CLI) | payer MEDICARE, OTHER ==
--- NOTE | 2021-01-01 16:09 | REP ---
INDICATION: PREOP TESTING COMPARISON: 08/26/2015. TECHNIQUE: PA/Lateral FINDINGS: Lungs: Clear, no infiltrate. Heart: Normal in size. Mediastinum: Mediastinal silhouette unremarkable. Pleural angles: Unremarkable.. Bones and soft tissues: There are mild diffuse degenerative changes of the spine with accentuation of the thoracic kyphosis. IMPRESSION: No acute pulmonary disease. <Electronically signed by Edgar De La Torre > 01/01/21 3044
[2021-01-01 20:39] LABS: BASO # 0.1 10^3/uL (0.0-0.2); BASO % 1.4 % (0.0-1.0); EOS # 0.3 10^3/uL (0.0-0.5); EOS % 3.6 % (0.0-3.0); HEMATOCRIT 42.9 % (36.0-47.0); HEMOGLOBIN 13.5 g/dl (12.0-15.5); LYMPH # 1.9 10^3/uL (1.5-5.0); LYMPH % 26.3 % (24.0-44.0); MEAN CORPUSCULAR HEMOGLOBIN 29.9 pg (27.0-33.0); MEAN CORPUSCULAR HGB CONC 31.5 g/dl (32.0-36.5); MEAN CORPUSCULAR VOLUME 95.1 fl (80.0-96.0); MONO # 0.7 10^3/uL (0.0-0.8); MONO % 9.6 % (2.0-8.0); NEUTROPHILS # 4.3 10^3/uL (1.5-8.5); PLATELET COUNT, AUTOMATED 232 10^3/uL (150-450); RED BLOOD COUNT 4.51 10^6/uL (4.00-5.40); WHITE BLOOD COUNT 7.3 10^3/uL (4.0-10.0)
[2021-01-01 20:45] LABS: ALBUMIN 3.9 GM/DL (3.2-5.2); ALT/SGPT 29 U/L (12-78); BILIRUBIN,TOTAL 0.4 MG/DL (0.2-1.0); BLOOD UREA NITROGEN 18 MG/DL (7-18); CALCIUM LEVEL 8.8 MG/DL (8.8-10.2); CARBON DIOXIDE LEVEL 27 MEQ/L (21-32); CHLORIDE LEVEL 108 MEQ/L (98-107); CREATININE FOR GFR 0.86 MG/DL (0.55-1.30); GLOMERULAR FILTRATION RATE > 60.0 (>45); GLUCOSE, FASTING 89 MG/DL (70-100); POTASSIUM SERUM 3.7 MEQ/L (3.5-5.1); SODIUM LEVEL 142 MEQ/L (136-145); TOTAL PROTEIN 6.5 GM/DL (6.4-8.2)
== END ==
LOC: M WUC 14:45
PROVIDERS: ATTEND Physician Assistant Medical
DX: I10 Essential (primary) hypertension (principal); Z01.818 Encounter for other preprocedural examination

== ENCOUNTER → 2021-01-07 | Outpatient (CLI) | payer MEDICARE, OTHER ==
[~2021-01-07] MED LIST changes: +CETI10CH PO; +FOSA70TA PO
== END ==
LOC: M LABSMTC 11:21
PROVIDERS: ATTEND Anesthesiology
DX: Z01.812 Encounter for preprocedural laboratory examination (principal); Z20.822 Contact with and (suspected) exposure to COVID-19

== ENCOUNTER 2021-01-12 06:13 | Day surgery (SDC) | payer MEDICARE, OTHER ==
[~2021-01-12] VITALS: Ht 157.5 cm; Wt 65.0 kg
[~2021-01-12 06:13] MED LIST changes: +CLINDAMYCIN 900 MG in IV 1 EA IV ONE; +HEPARIN SOD (PORCINE) 5000UNITS/ML 1ML VIAL/SYRINGE SQ ONE; +LR 1,000 ML IV ONE
[2021-01-12] MEDS ORDERED: BUPIVACAINE HCL 0.25% 30ML VIAL As Ordered ONE (07:11)
[2021-01-12] MEDS ORDERED: LIDOCAINE 1% SDV 30ML VIAL As Ordered ONE (07:11)
[2021-01-12] MEDS ORDERED: propofoL 200 MG/20 ML VIAL As Ordered ONE (07:50)
[2021-01-12] MEDS ORDERED: LIDOCAINE 2% 100MG/5ML SDV (FOR ANES.) As Ordered ONE (07:50)
[2021-01-12] MEDS ORDERED: ONDANSETRON 4MG/2ML VIAL As Ordered ONE (07:50)
[2021-01-12] MEDS ORDERED: MIDAZOLAM INJ 2MG/2ML VIAL (J2250 PER 1MG) As Ordered ONE (07:50)
[2021-01-12] MEDS ORDERED: dexameTHASONE 4 MG/ML 1ML VIAL (J1100 PER 1MG) As Ordered ONE (07:50)
[2021-01-12] MEDS ORDERED: fentaNYL 100 MCG/2 ML INJECTION (J3010) As Ordered ONE (07:50)
[2021-01-12] MEDS ORDERED: HYDROmorphone HCL 2 MG/ML 1ML VIAL (J1170) As Ordered ONE (07:50)
[2021-01-12] MEDS ORDERED: ROCURONIUM BROMIDE 50 MG/5 ML VIAL As Ordered ONE (07:50)
[2021-01-12] MEDS ORDERED: ePHEDrine SULFATE 25 MG/5 ML(5MG/ML) SYRINGE As Ordered ONE (07:54)
[2021-01-12] MEDS ORDERED: ACETAMINOPHEN 1000MG 100ML IV BTL (OFIRMEV) (J0131 PER 10MG) As Ordered ONE (08:10)
[2021-01-12] MEDS ORDERED: SUGAMMADEX SODIUM 500 MG/5 ML VIAL (BRIDION) As Ordered ONE (08:22)
[2021-01-12] MEDS ORDERED: ULTR50TA8 PO (09:48)
[2021-01-12] MEDS ORDERED: METOCLOPRAMIDE INJ 10MG/2ML VIAL (J2765 PER 1) As Ordered ONE ×2 (09:51→11:01)
[2021-01-12] MEDS ORDERED: fentaNYL 100 MCG/2 ML INJECTION (J3010) IV PRN (10:10)
[2021-01-12] MEDS ORDERED: ONDANSETRON 4MG/2ML VIAL IV PRN (10:10)
[2021-01-12] MEDS ORDERED: LR 1,000 ML IV SCH (10:10)
[2021-01-12] MEDS ORDERED: oxyCODONE 5MG TAB PO PRN (10:10)
--- NOTE | 2021-01-12 10:56 | REP ---
INDICATION: RIGHT BREAST EXCISIONAL BIOPSY WITH WIRE PLACEMENT. COMPARISON: Comparison mammography October 27, 2020, October 09, 2020, and November 24, 2020.. TECHNIQUE: Six views including photograph so. FINDINGS: Specimen radiography demonstrates a Kopan's needle wire localization device adjacent to a soft tissue nodule and a needle biopsy marker clip all located within the specimen. IMPRESSION: Needle biopsy marker clip and nodule are seen in the specimen radiograph adjacent to the localizer wire. <Electronically signed by Rinku Wilkerson > 01/12/21 1054
[2021-01-12] MEDS ORDERED: METOCLOPRAMIDE INJ 10MG/2ML VIAL (J2765 PER 1) IV PRN (11:10)
[2021-01-12] MEDS ORDERED: SCOPOLAMINE 1MG TRANSDERMAL PATCH TOP ONE (11:50)
--- NOTE | 2021-01-12 13:39 | REP ---
INDICATION: RIGHT BREAST EXCISIONAL BIOPSY WITH WIRE PLACEMENT. COMPARISON: Comparison sonography October 27, 2020.. TECHNIQUE: Sonographic guidance. FINDINGS: Ultrasound guidance is provided to Dr. Castillo who performed a needle wire localization procedure under ultrasound guidance. IMPRESSION: Procedural imaging. <Electronically signed by Rinku Wilkerson > 01/12/21 [id number]
[2021-01-12] MEDS ORDERED: diphenhydrAMINE 50MG/ML VIAL (J1200) As Ordered ONE (14:26)
[2021-01-12] MEDS ORDERED: diphenhydrAMINE 50MG/ML VIAL (J1200) IV PRN (14:35)
[2021-01-12 15:55] VITALS: BP 123/69
[2021-01-20] MEDS ORDERED: ASPI81CH33 PO (13:55)
--- NOTE | 2021-01-23 19:06 | ROOPDOC ---
[facility] Report Of Operation Report of Operation DATE OF PROCEDURE: 01/12/21 PREPROCEDURE DIAGNOSES: RIGHT BREAST PAPILLARY LESION WITH ATYPIA POSTPROCEDURE DIAGNOSES: SAME PROCEDURE: RIGHT BREAST EXCISIONAL BIOPSY WITH INTRAOP WIRE PLACEMENT AND INTRAOP SPECIMEN RADIOGRAPHY SURGEON: DR. Ritu HUNTER ANESTHESIA: GENERAL ESTIMATED BLOOD LOSS: Approximately 50 mL. COMPLICATIONS: NONE REMARKS: WIRE, CLIP AND SOME CALCIFICATIONS SEEN IN THE SPECIMEN DESCRIPTION OF PROCEDURE: INDICATIONS: Ms. Liu is a 65-year-old woman who was found to have a suspicious right breast lesion on screening mammogram. This was evaluated with biopsy of the lesion done with radiology. The pathology came back as papillary neoplasm with atypia and excisional biopsy was recommended. Hydromark clip is noted in the right breast at 10:00 at 9CFN. She was medically cleared for surgery by her primary care doctor. Risks and possible complications of surgical procedure including bleeding, infection and injury to surrounding structures were explained to the patient and she wished to proceed. Consent was signed. My initials were placed on the operative site. Subcutaneous injection of 5000 units of heparin was done in Preop. DETAILS: Patient was taken to the operating room and placed on the operating room table. A sign in was called stating patients name, date of and the procedure to be done. Preoperative antibiotics were infused. Smooth induction of general anesthesia was done. Patients hands were extended on arm rests. Care was taken not to over extend the arms. Pillow was placed under the knees and a foam was placed under the heels. Sequential compression devices were placed and assured to function correctly. Procedure was started with right breast intraop wire localization. Appropriate time out was done and patients name, date of , and the procedure to be done were confirmed. Right breast was cleaned by me. Intraoperative ultrasound was used to confirm location of the Hydromark clip. Location of the clip was marked on the skin as well. 21 G Kopans Breast Lesion Localization Needle was used to place 25 cm wire. The wire was placed next to the clip. The end of the wire was passed slightly distal to the clip. The images were captured confirming adequate placement of the localizing wire. Studio Coordinator assisted with the wire placement. Next, patients right breast and axilla were prepped and draped in the usual fashion. Care was taken not to displace the wire. Appropriate time out was done again prior second part of the procedure. Patients name, date of , and the procedure to be done were confirmed. Next, local anesthetic using 1% lidocaine and 0.25 % Marcaine 50/50 mix was injected at the site of planned right periareolar incision. The incision was made with the scalpel. Subcutaneous skin flaps were raised and the guide wire was carefully pulled into the wound. Dissection was carries along the wire until the previously marked on the skin area of target lesion location was encountered. At this point, wider excision of the tissue surrounding the wire was done. The Hydromark clip was identified in the tissue with intraoperative hockey stick ultrasound probe. The end of the wire was identified with palpation. The excisional biopsy specimen was carefully removed from the breast keeping its proper orientation and moved to the back table where margins were marked with the surgical inking kit following the standard colors recommendations. Excised specimen measured 4.8 x 4.0 x 2.7 cm. Specimen was then placed on the grid and placed in [facility] Specimen Imaging System. The image revealed the wire, some calcifications, and the Hydromark in the specimen. The specimen was labeled with patients name and right excisional biopsy and sent to pathology. Next, the wound was irrigated thoroughly and adequate hemostasis was assured. Additional local anesthetic was injected into surrounding tissues. space was approximated with 2-0 Vicryl. The dermis was closed with 3-0 Vicryl and skin was closed with 4-0 Monocryl. Surgical glue was placed over the incision. Patient emerged from the anesthesia without any problems. Fluffs were placed over the operative site and patients chest was wrapped snuggly in the LAKESHA wrap. Sponge and instrument counts were done and were correct. Patient tolerated procedure well and was taken to recovery unit in stable condition. FLAQUITA HUNTER DO January 23, 2021 19:06
== END 2021-01-12 16:15 | disposition home or self-care (01) ==
LOC: M SDC 06:13
PROVIDERS: ATTEND Surgery
DX: C50.411 Malignant neoplasm of upper-outer quadrant of right female breast (principal); Z17.0 Estrogen receptor positive status [ER+]; E78.5 Hyperlipidemia, unspecified; Z85.3 Personal history of malignant neoplasm of breast; Z92.3 Personal history of irradiation; Z79.899 Other long term (current) drug therapy; Z13.79 Encounter for other screening for genetic and chromosomal anomalies; Z88.0 Allergy status to penicillin; Z88.2 Allergy status to sulfonamides; Z88.5 Allergy status to narcotic agent
CPT/HCPCS: 19125; 36415; 76942; 86850; 86900; 86901; 88307; 88341; 88342; J0131; J1100; J1170; J1200; J1644; J2250; J2405; J2765; J3010

== ENCOUNTER → 2021-01-21 | Outpatient (CLI) | payer MEDICARE, OTHER ==
[~2021-01-21] MED LIST changes: +ASPI81CH33 PO; -CLINDAMYCIN 900 MG in IV 1 EA IV ONE; -HEPARIN SOD (PORCINE) 5000UNITS/ML 1ML VIAL/SYRINGE SQ ONE; -LR 1,000 ML IV ONE; +ULTR50TA8 PO
== END ==
LOC: M LABSMTC 12:29
PROVIDERS: ATTEND Anesthesiology
DX: Z01.818 Encounter for other preprocedural examination (principal); Z20.822 Contact with and (suspected) exposure to COVID-19

== ENCOUNTER 2021-01-26 06:18 | Day surgery (SDC) | payer MEDICARE, OTHER ==
[~2021-01-26] VITALS: Ht 157.5 cm; Wt 63.9 kg
[~2021-01-26 06:18] MED LIST changes: +CLINDAMYCIN 900 MG in IV 1 EA IV ONE; +HEPARIN SOD (PORCINE) 5000UNITS/ML 1ML VIAL/SYRINGE SQ ONE; +LIDOCAINE 1% MDV 20ML VIAL SQ PRN; +LR 1,000 ML IV ONE
[2021-01-26] MEDS ORDERED: LIDOCAINE 2% 100MG/5ML SDV (FOR ANES.) As Ordered ONE (07:17)
[2021-01-26] MEDS ORDERED: propofoL 200 MG/20 ML VIAL As Ordered ONE (07:17)
[2021-01-26] MEDS ORDERED: ACETAMINOPHEN 1000MG 100ML IV BTL (OFIRMEV) (J0131 PER 10MG) As Ordered ONE (07:17)
[2021-01-26] MEDS ORDERED: ONDANSETRON 4MG/2ML VIAL As Ordered ONE ×2 (07:17→11:01)
[2021-01-26] MEDS ORDERED: dexameTHASONE 4 MG/ML 1ML VIAL (J1100 PER 1MG) As Ordered ONE (07:17)
[2021-01-26] MEDS ORDERED: fentaNYL 100 MCG/2 ML INJECTION (J3010) As Ordered ONE (07:18)
[2021-01-26] MEDS ORDERED: LIDOCAINE 1% SDV 30ML VIAL As Ordered ONE (07:18)
[2021-01-26] MEDS ORDERED: BUPIVACAINE HCL 0.25% 30ML VIAL As Ordered ONE (07:18)
[2021-01-26] MEDS ORDERED: MIDAZOLAM INJ 2MG/2ML VIAL (J2250 PER 1MG) As Ordered ONE (07:18)
[2021-01-26] MEDS ORDERED: SCOPOLAMINE 1MG TRANSDERMAL PATCH TOP ONE (08:00)
[2021-01-26] MEDS ORDERED: METHYLENE BLUE 0.5% (5MG/ML) 10 ML AMP (PROVAYBLUE) As Ordered ONE (09:40)
[2021-01-26] MEDS ORDERED: ePHEDrine SULFATE 25 MG/5 ML(5MG/ML) SYRINGE As Ordered ONE (10:20)
[2021-01-26] MEDS ORDERED: METOCLOPRAMIDE INJ 10MG/2ML VIAL (J2765 PER 1) As Ordered ONE (10:21)
[2021-01-26] MEDS ORDERED: METOCLOPRAMIDE INJ 10MG/2ML VIAL (J2765 PER 1) IV PRN (11:20)
[2021-01-26] MEDS ORDERED: ONDANSETRON 4MG/2ML VIAL IV PRN (11:20)
[2021-01-26] MEDS ORDERED: fentaNYL 100 MCG/2 ML INJECTION (J3010) IV PRN (11:20)
[2021-01-26] MEDS ORDERED: PERCOCET 5MG/325MG TAB PO PRN (11:20)
[2021-01-26] MEDS ORDERED: LR 1,000 ML IV SCH (11:20)
[2021-01-26 12:05] VITALS: BP 122/63
--- NOTE | 2021-01-27 13:14 | REP ---
INDICATION: dr van. right side. COMPARISON: None. TECHNIQUE: The procedure was performed under the direct supervision of Dr. De La Torre. The images were reviewed with Dr. De La Torre. Using topical anesthetic and sterile technique 1.016 mCi of technetium 99 filtered sulfur colloid was injected subdermally in 8 fractionated periareolar injections. Images obtained 1 hour after injection showed no axillary uptake. FINDINGS: None IMPRESSION: Right breast lymphoscintigraphy. There is no axillary uptake identified. <Electronically signed by Conner Desouza > 01/26/21 2333 <Electronically signed by Edgar De La Torre > 01/27/21 1310
== END 2021-01-26 13:22 | disposition home or self-care (01) ==
LOC: M SDC 06:18
PROVIDERS: ATTEND Surgery
DX: C50.911 Malignant neoplasm of unspecified site of right female breast (principal); Z88.0 Allergy status to penicillin; Z88.2 Allergy status to sulfonamides; Z88.5 Allergy status to narcotic agent; E78.49 Other hyperlipidemia; Z92.3 Personal history of irradiation; Z79.82 Long term (current) use of aspirin; Z79.899 Other long term (current) drug therapy
CPT/HCPCS: 36415; 38525; 78195; 86850; 86900; 86901; 88305; A9541; J0131; J1100; J1644; J2250; J2405; J2765; J3010; Q9968

== ENCOUNTER → 2021-01-28 | Outpatient (CLI) | payer MEDICARE, OTHER ==
[~2021-01-28] MED LIST changes: -CLINDAMYCIN 900 MG in IV 1 EA IV ONE; -HEPARIN SOD (PORCINE) 5000UNITS/ML 1ML VIAL/SYRINGE SQ ONE; -LIDOCAINE 1% MDV 20ML VIAL SQ PRN; -LR 1,000 ML IV ONE
--- NOTE | 2021-01-28 12:09 | RADONC.CN ---
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 She is seen today for consideration of adjuvant RT. Diagnosis/Treatment History Oncologic History Left breast DCIS pTis ER/MD+ Grade 1 s/p lumpectomy and adjuvant RT 48.6 Gy in 27 fractions to the left whole breast and 12 Gy in 6 fractions tumor bed boost from 10/10/13/-11/29/13. Patient then took tamoxifen for 3 months but discontinued due to MERCADO. 2020 Right breast cancer 10/09/20 Mammogram with 7 mm lesion in the upper outer right breast 11/24/20 Biopsy showing papillary neoplasm 01/12/21 Lumpectomy showing IDC and associated DCIS pT1c ER/MD+ HER2- Grade 2 margins negative but <1mm to DCIS 01/26/21 SLNB negative with 0/5 nodes involved Breast history: (1 interrupted tubal) Menses @ 11 Menopause @ 38 No OCP No HRT No IVF Interval History Here with her . Reports she had extensive skin reaction post treatment in 2013, moist peeling, took over 1 month to heal etc, but that she has no lingering skin concerns from this. She was placed on endocrine therapy with Dr. Thayer in 2013 but discontinued after 3 months due to headache, unclear of the agent, but thinks it was tamoxifen. She has minimal pain under the right arm. No pain in the right breast. Appetite good energy levels stable. Past Medical History: Hard of hearing HPL Kidney stones Past Surgical History: Hernia repair 2009 Salpinoophorectomy 1976 Family History: Father lung cancer Brother lung cancer Brother prostate cancer Social History: Never smoker Does not drink presently Allergies / Meds Allergies: Coded Allergies: Penicillins (Verified Allergy, Intermediate, hives, 01/12/21) Sulfa (Sulfonamide Antibiotics) (Verified Allergy, Intermediate, hives, 01/12/21) morphine (Verified Adverse Reaction, Intermediate, severe nausea and vomiting, 01/12/21) Home Meds Active Scripts Tramadol HCl (Ultram) 50 Mg Tablet, 50 MG PO Q6HP PRN for pain MDD 4 Tablet(s) for 3 Days, #10 TAB Prov:FLAQUITA CASTILLO DO 01/12/21 Reported Medications Aspirin (Aspirin) 81 Mg Tab.chew, 81 MG PO DAILY for pain for 30 Days, #30 TAB 01/20/21 Alendronate Sodium (Fosamax) 70 Mg Tablet, 70 MG PO QWEEK, TAB Monday01/07/21 Cetirizine HCl (Cetirizine HCl) 10 Mg Tab.chew, 10 MG PO DAILY, W 01/07/21 Pravastatin Sodium (Pravastatin Sodium) 20 Mg Tab, 20 MG PO QAM, TAB 07/06/17 Review of Systems General: Reports: Normal Appetite Constitutional: Denies: Chills, Fever, Night Sweats Eyes: Denies: Pain, Vision change HEENT: Denies: Head Aches, Dysphagia, Sore Throat Skin: Denies: Rash, Lesions, Bruising Pulmonary: Denies: Dyspnea, Cough Cardiovascular: Denies: Chest Pain, Palpitations, Edema Breast: Reports: Breast Skin Changes (Bruising), Breast Pain or Tenderness (Mild); Denies: New Breast Lumps / Masses, Nipple Retraction, Nipple Discharge Gastrointestinal: Denies: Nausea, Vomiting, Abdominal Pain, Diarrhea Genitourinary: Denies: Dysuria, Frequency, Incontinence Hematologic: Denies: Bruising, Petecchia, Enlarged Lymph Nodes Musculoskeletal: Denies: Neck pain, Back pain Neurological: Denies: Weakness, Numbness, Incoordination Psych: Reports: Mood Normal; Denies: Memory Issues Vital Signs Ht 62" Wt 142 lbs T 97.6 P 69RR 16 BP 97.56 O2 97% Pain 0 Fatigue 0 General Exam: Positive: Alert, Cooperative, No Acute Distress Eye Exam: Positive: PERRLA, EOMI Neck Exam: Positive: Supple; Negative: Lymphadenopathy Chest Exam: Positive: Clear to auscultation Heart Exam: Positive: Rate Normal Breast Exam: Positive: Symmetric Bilaterally (Mild ptosis), Lumps or Masses (Palpable seroma left upper outer quadrant mild tenderness. No lumps or masses BL), Skin Changes (Bruising present lateral right breast, right periareolar incision healing well. Right axillary incision healing well. Left breast without sequelae of RT visible. Intact RT tattoos midline left and right lateral); Negative: Nipple Retraction, Nipple Discharge Abdomen Exam: Positive: Soft Extremity Exam: Negative: Edema Neuro Exam: Positive: Normal Gait, Normal Speech, Cranial Nerves 3-12 NL Psych Exam: Positive: Mental status NL Diagnostic and Laboratory Diagnostic Review Radiologic images, relevant labs and pathology reports were personally reviewed and discussed with Ms. Liu. Assessment and Plan Impression Ms. 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 She is seen today for consideration of adjuvant RT. Stage Right upper outer breast cancer pT1cN0(sn)M0 ER/MD+ HER2- Grade 2 close margin to DCIS <1mm Performance Status ECOG 1 Plan We had an extensive discussion with Ms. Liu regarding the diagnosis at hand and available therapeutic options. Inna is recovering well from her surgeries. She has minimal pain and some s welling on the right. She is seeing Dr. Castillo on Monday. Unclear if oncotype is being sent, however the probability of oncotype >26 in her case is only 8% per nomogram based on her pathology. She also mentioned that she would not want chemotherapy if indicated. She would however be willing to try endocrine therapy again and so would like a referral to medical oncology to discuss this. I believe Dr. Castillo has placed this referral, but if there is inordinate delay I would be happy to follow up on this for Inna. For adjuvant treatment I recommended WBI 40 Gy in 15 fractions with a 10 Gy in 5 fraction tumor bed boost. We also discussed the alternative of APBI for which she would be cautionary per AIDEN guidelines based on the close margin to DCIS. We discussed the logistics of receiving radiation therapy in detail including the need for a 1-time planning session. This can occur in ~2 weeks giving her additional time to heal. We reviewed the side effects of treatment in detail including fatigue, skin reaction, late fibrosis and pneumonitis. After discussing the risks, benefits and alternatives to radiation therapy, Ms. Liu was amenable to pursuing radiotherapy. All questions were answered to the patient's satisfaction. We instructed the patient that if there were any questions,concerns or changes in clinical status in the interim to contact us. Recommendations Adjuvant WBI 40 Gy in 15 fractions + 10 Gy in 5 fraction tumor bed boost Simulation around 02/08/21 Will assist with medical oncology referral if needed Billing Statement Total time of [46] minutes was spent preparing for the visit [2], obtaining HPI [7], examining the patient [5], reviewing diagnostic tests [8], discussing management options [15], coordinating care [2], and writing this note [7]. AXEL WIGGINS MD Jan 28, 2021 12:08
== END ==
LOC: M ONCR 10:03
PROVIDERS: ATTEND General Practice
DX: C50.411 Malignant neoplasm of upper-outer quadrant of right female breast (principal); Z79.82 Long term (current) use of aspirin; Z79.899 Other long term (current) drug therapy; Z80.1 Family history of malignant neoplasm of trachea, bronchus and lung; Z88.0 Allergy status to penicillin; Z88.2 Allergy status to sulfonamides; Z88.5 Allergy status to narcotic agent

== ENCOUNTER → 2021-02-15 | Outpatient (CLI) | payer MEDICARE, OTHER ==
[~2021-02-15] MED LIST changes: +CETI-24
--- NOTE | 2021-02-15 16:11 | REP ---
INDICATION: BREAST CA. COMPARISON: None. TECHNIQUE/RADIOTRACER AND DOSE: 22.0 mCi of Technetium-99m MDP was injected and standard whole-body bone scanning is acquired. FINDINGS: There is a normal distribution of skeletal tracer with uptake in bilateral kidneys and in the urinary bladder. There is no evidence to suggest skeletal metastatic disease. There is osteoarthritic facet uptake in the posterior elements of the cervical spine on the right and mild degenerative uptake is seen in the lumbosacral junction. There is mild arthritic uptake in both acromioclavicular joints. Moderate osteoarthritic uptake is seen in the left greater than right knee. There is arthropathy associated uptake in the small joints of the right foot medially. IMPRESSION: No evidence to suggest skeletal metastatic disease. Degenerative and osteoarthritic uptake seen.. <Electronically signed by Rinku Wilkerson > 02/15/21 1390
== END ==
LOC: M RAD 11:41
PROVIDERS: ATTEND Internal Medicine Hematology & Oncology
DX: C50.919 Malignant neoplasm of unspecified site of unspecified female breast (principal)
CPT/HCPCS: 78306; A9503

== ENCOUNTER → 2021-02-19 | Outpatient (CLI) | payer MEDICARE, OTHER ==
--- NOTE | 2021-02-19 16:16 | DEXAMM ---
INDICATION: BREAST CA,STARTING AI. COMPARISON: The most recent comparison densitometry study is from September 14, 2017. The most remote is from 22 February 2002.. TECHNIQUE: Bone density was measured using dual-energy x-ray absorptionmetry (DEXA). FINDINGS: AP SPINE L1-L4 BMD 1.014 g/cm2 Young Adult T-Score -1.5 Age Matched Z-Score 0.2. LT FEMUR, TOTAL BMD 0.819 g/cm2 Young Adult T-Score -1.5 Age Matched Z-Score -0.2. LT NECK BMD 0.796 g/cm2 Young Adult T-Score -1.7 Age Matched Z-Score -0.2. RT FEMUR, TOTAL BMD 0.667 g/cm2 Young Adult T-Score -2.7 Age Matched Z-Score -1.4. RT NECK BMD 0.687 g/cm2 Young Adult T-Score -2.5 Age Matched Z-Score -1.0. IMPRESSION: There is low bone density of the spine. There is low bone density of the left hip. There is osteoporosis of the right hip. The density of the spine has increased 6.3% since the initial exam on February 22, 2002. The density of the spine increased 1.5% since most recent exam on September 14, 2017. The density of the left hip has decreased 6.0% since initial exam on February 22, 2002. The density of the left hip has decreased 1.6% since most recent exam on September 14, 2017. The density of the right hip has increased 1.2% since the initial exam on February 22, 2002. The density of the right hip has decreased 2.1% since the most recent exam on September 14, 2017. FOLLOW-UP: Recommendation for the next bone density exam: 2 years. <Electronically signed by Rinku Wilkerson > 02/19/21 1995
== END ==
LOC: M WHC 15:16
PROVIDERS: ATTEND Internal Medicine Hematology & Oncology
DX: C50.919 Malignant neoplasm of unspecified site of unspecified female breast (principal); Z79.811 Long term (current) use of aromatase inhibitors

== ENCOUNTER → 2021-02-24 | Outpatient (RCR) | payer MEDICARE, OTHER ==
[~2021-02-24] MED LIST changes: +CALC1TAB26 PO; +LETR2.5T2 PO
== END ==
LOC: M ONCR 02-09 10:25
PROVIDERS: ATTEND General Practice
DX: C50.411 Malignant neoplasm of upper-outer quadrant of right female breast (principal)

== ENCOUNTER 2021-03-23 12:57 | Outpatient (RCR) | payer MEDICARE, OTHER ==
[2021-03-24] MEDS ORDERED: CALC1TAB26 PO (10:29)
[2021-03-24] MEDS ORDERED: LETR2.5T2 PO (10:29)
== END 2021-03-27 ==
LOC: M ONCR 12:57
PROVIDERS: ATTEND General Practice
DX: C50.411 Malignant neoplasm of upper-outer quadrant of right female breast (principal)

== ENCOUNTER → 2021-07-29 | Outpatient (CLI) | payer MEDICARE, OTHER ==
[~2021-07-29] MED LIST changes: +GASTROGRAFIN SOLUTION 30ML (Q9963) As Ordered ONE; +ISOVUE-370 76% 100ML VIAL As Ordered ONE
--- NOTE | 2021-08-01 03:20 | REP ---
INDICATION: PERIUMBICAL ABD PAIN. COMPARISON: 12/20/2015 TECHNIQUE: Axial contrast-enhanced images from the lung bases to the pubic symphysis using oral and 100 cc Isovue 370 intravenous contrast material. Sagittal and coronal reformations along with precontrast and delayed images of the abdomen obtained. This CT examination was performed using the following dose reduction techniques: Automated exposure control, adjustment of mA and/or kv according to the patient's size, and the use of iterative reconstruction technique. FINDINGS: Lung bases are essentially clear with minimal chronic appearing scarring at the basilar right middle lobe. Large hiatal hernia containing fluid level and debris at the distal esophagus. Liver demonstrates mild fatty infiltration without focal hepatic lesion. Spleen, pancreas, gallbladder, bilateral adrenal glands and kidneys are normal. The enteric system including stomach, small, and large bowel appears normal. No evidence for obstruction or acute inflammatory process. Normal terminal ileum and appendix are identified in the right lower quadrant. Chronic 1.3 cm fat containing periumbilical hernia noted without acute changes. Pelvis demonstrates normal bladder and evidence for prior hysterectomy. No ascites. No free air. No intraperitoneal or retroperitoneal adenopathy. Abdominal aorta and vasculature appear normal. Musculoskeletal structures demonstrate moderate age-related degenerative changes without acute osseous abnormality. IMPRESSION: No acute abdominopelvic pathology appreciated. Small fat containing periumbilical hernia. Moderate to large hiatal hernia. <Electronically signed by Calvin Foster > 08/01/21 [id number]
== END ==
LOC: M RAD 13:51
DX: R10.30 Lower abdominal pain, unspecified (principal); K44.9 Diaphragmatic hernia without obstruction or gangrene
CPT/HCPCS: 74178; Q9963; Q9967

== ENCOUNTER → 2021-09-22 | Outpatient (CLI) | payer MEDICARE, OTHER ==
[~2021-09-22] MED LIST changes: -GASTROGRAFIN SOLUTION 30ML (Q9963) As Ordered ONE; -ISOVUE-370 76% 100ML VIAL As Ordered ONE
== END ==
LOC: M ONCR 10:49
PROVIDERS: ATTEND General Practice
DX: D05.12 Intraductal carcinoma in situ of left breast (principal); C50.411 Malignant neoplasm of upper-outer quadrant of right female breast; Z92.3 Personal history of irradiation; Z88.0 Allergy status to penicillin; Z88.2 Allergy status to sulfonamides; Z88.5 Allergy status to narcotic agent; Z79.899 Other long term (current) drug therapy

== ENCOUNTER → 2021-10-11 | Outpatient (CLI) | payer MEDICARE, OTHER | LOC: M WHC 08:40 | PROVIDERS: ATTEND Surgery | DX: C50.911 Malignant neoplasm of unspecified site of right female breast (principal) | CPT/HCPCS: 77066; G0279 ==

== ENCOUNTER → 2022-03-22 | Outpatient (CLI) | payer MEDICARE, OTHER | LOC: M ONCR 09:41 | PROVIDERS: ATTEND General Practice | DX: C50.411 Malignant neoplasm of upper-outer quadrant of right female breast (principal); Z79.82 Long term (current) use of aspirin; Z79.899 Other long term (current) drug therapy; Z88.0 Allergy status to penicillin; Z88.1 Allergy status to other antibiotic agents; Z88.2 Allergy status to sulfonamides; Z88.5 Allergy status to narcotic agent; Z92.3 Personal history of irradiation ==

== ENCOUNTER → 2022-04-20 | Outpatient (REF) | payer MEDICARE, OTHER | LOC: M LAB REF 12:08 | PROVIDERS: ATTEND Physician Assistant Medical | DX: N39.0 Urinary tract infection, site not specified (principal) ==

== ENCOUNTER → 2022-05-03 | Outpatient (CLI) | payer MEDICARE, OTHER ==
[~2022-05-03] MED LIST changes: +ALEN70TA87 PO; -FOSA70TA PO
== END ==
LOC: M WHC 09:36
PROVIDERS: ATTEND Specialist
DX: Z13.820 Encounter for screening for osteoporosis (principal); M85.88 Other specified disorders of bone density and structure, other site; M85.851 Other specified disorders of bone density and structure, right thigh; M85.852 Other specified disorders of bone density and structure, left thigh

== ENCOUNTER → 2022-09-09 | Outpatient (CLI) | payer MEDICARE, OTHER | LOC: M RAD 11:41 | PROVIDERS: ATTEND Physician Assistant | DX: K42.9 Umbilical hernia without obstruction or gangrene (principal) ==

== ENCOUNTER → 2022-10-13 | Outpatient (CLI) | payer MEDICARE, OTHER | LOC: M WHC 09:08 | PROVIDERS: ATTEND Nurse Practitioner Women's Health | DX: C50.911 Malignant neoplasm of unspecified site of right female breast (principal); N60.92 Unspecified benign mammary dysplasia of left breast; Z91.89 Other specified personal risk factors, not elsewhere classified; Z86.000 Personal history of in-situ neoplasm of breast | CPT/HCPCS: 77066; G0279 ==

== ENCOUNTER → 2022-10-26 | Outpatient (CLI) | payer MEDICARE, OTHER ==
[~2022-10-26] MED LIST changes: -CETI-24; +CETI-24 PO
== END ==
LOC: M RAD 09:11
PROVIDERS: ATTEND Physician Assistant
DX: Z01.818 Encounter for other preprocedural examination (principal); Z20.822 Contact with and (suspected) exposure to COVID-19; I51.7 Cardiomegaly

== ENCOUNTER → 2022-10-26 | Outpatient (CLI) | payer MEDICARE, OTHER | LOC: M LABSMTC 07:42 | PROVIDERS: ATTEND Anesthesiology | DX: Z01.812 Encounter for preprocedural laboratory examination (principal); Z20.822 Contact with and (suspected) exposure to COVID-19 ==

== ENCOUNTER 2022-10-31 10:48 | Day surgery (SDC) | payer MEDICARE, OTHER ==
[~2022-10-31] VITALS: Ht 154.9 cm; Wt 57.2 kg
[~2022-10-31 10:48] MED LIST changes: +CLINDAMYCIN 900 MG in IV 1 EA IV ONE; +LIDOCAINE 2% 100MG/5ML SDV (FOR ANES.) As Ordered ONE; +MIDAZOLAM INJ 2MG/2ML VIAL As Ordered ONE; +ONDANSETRON 4MG 2ML VIAL As Ordered ONE; +ROCURONIUM BROMIDE 50MG/5ML VIAL As Ordered ONE; +fentaNYL 100 MCG/2 ML INJECTION As Ordered ONE; +propofoL 200 MG/20 ML VIAL As Ordered ONE
[2022-10-31] MEDS ORDERED: BUPIVACAINE/EPIN 0.25% 30ML VIAL As Ordered ONE (10:56)
[2022-10-31] MEDS ORDERED: LR 1,000 ML IV SCH ×2 (11:05→13:10)
[2022-10-31] MEDS ORDERED: SCOPOLAMINE 1MG TRANSDERMAL PATCH TOP SCH (11:35)
[2022-10-31] MEDS ORDERED: KETOROLAC 60MG 2ML VIAL As Ordered ONE (12:19)
[2022-10-31] MEDS ORDERED: SUGAMMADEX SODIUM 500 MG/5 ML VIAL (BRIDION) As Ordered ONE (12:19)
[2022-10-31] MEDS ORDERED: ACETAMINOPHEN 1000MG 100ML IV BAG As Ordered ONE (12:21)
[2022-10-31] MEDS ORDERED: ePHEDrine SULFATE 25 MG/5 ML(5MG/ML) SYRINGE As Ordered ONE (12:28)
[2022-10-31] MEDS ORDERED: PHENYLephrine 500MCG 5ML (100MCG/ML) SYRINGE As Ordered ONE (12:28)
[2022-10-31] MEDS ORDERED: ONDANSETRON 4MG 2ML VIAL IV PRN (13:10)
[2022-10-31] MEDS ORDERED: HYDROMORPHONE HCL 0.5 MG/ 0.5 ML SYRINGE IV PRN (13:10)
[2022-10-31] MEDS ORDERED: oxyCODONE 5MG TAB PO PRN (13:10)
[2022-10-31] MEDS ORDERED: fentaNYL 100 MCG/2 ML INJECTION IV PRN (13:10)
[2022-10-31] MEDS ORDERED: NORCO, ANEXSIA 5/325MG TABLET (HYDROcodone/ACETAMINOPHEN) PO PRN (13:45)
[2022-10-31] MEDS ORDERED: METOCLOPRAMIDE INJ 10MG/2ML VIAL IV STA (13:49)
[2022-10-31 15:05] VITALS: BP 118/56
== END 2022-10-31 15:35 | disposition home or self-care (01) ==
LOC: M SDC 10:48
PROVIDERS: ATTEND Surgery
DX: K43.0 Incisional hernia with obstruction, without gangrene (principal); E78.5 Hyperlipidemia, unspecified; Z85.3 Personal history of malignant neoplasm of breast; Z92.3 Personal history of irradiation; Z79.899 Other long term (current) drug therapy; Z88.0 Allergy status to penicillin; Z88.2 Allergy status to sulfonamides; Z88.5 Allergy status to narcotic agent
CPT/HCPCS: 49592; J0131; J1100; J1885; J2250; J2370; J2405; J2765; J3010; S2900

== ENCOUNTER → 2023-03-24 | Outpatient (CLI) | payer MEDICARE, OTHER ==
[~2023-03-24] MED LIST changes: -CLINDAMYCIN 900 MG in IV 1 EA IV ONE; -LIDOCAINE 2% 100MG/5ML SDV (FOR ANES.) As Ordered ONE; -MIDAZOLAM INJ 2MG/2ML VIAL As Ordered ONE; -ONDANSETRON 4MG 2ML VIAL As Ordered ONE; -ROCURONIUM BROMIDE 50MG/5ML VIAL As Ordered ONE; -fentaNYL 100 MCG/2 ML INJECTION As Ordered ONE; -propofoL 200 MG/20 ML VIAL As Ordered ONE
== END ==
LOC: M ONCR 09:51
PROVIDERS: ATTEND General Practice
DX: C50.411 Malignant neoplasm of upper-outer quadrant of right female breast (principal); Z63.4 Disappearance and death of family member; Z71.2 Person consulting for explanation of examination or test findings; Z79.811 Long term (current) use of aromatase inhibitors; Z79.899 Other long term (current) drug therapy; Z88.0 Allergy status to penicillin; Z88.1 Allergy status to other antibiotic agents; Z88.2 Allergy status to sulfonamides; Z88.5 Allergy status to narcotic agent; Z92.3 Personal history of irradiation; Z98.890 Other specified postprocedural states

== ENCOUNTER → 2023-10-17 | Outpatient (CLI) | payer MEDICARE, OTHER | LOC: M WHC 12:37 | PROVIDERS: ATTEND Nurse Practitioner Women's Health | DX: Z12.31 Encounter for screening mammogram for malignant neoplasm of breast (principal); Z85.3 Personal history of malignant neoplasm of breast | CPT/HCPCS: 77066; G0279 ==

== ENCOUNTER 2024-01-11 09:20 | Day surgery (SDC) | payer MEDICARE, OTHER ==
[~2024-01-11] VITALS: Ht 157.5 cm; Wt 60.6 kg
[2024-01-11] MEDS ORDERED: fentaNYL 100 MCG/2 ML INJECTION As Ordered ONE (10:11)
[2024-01-11] MEDS ORDERED: propofoL 200 MG/20 ML VIAL As Ordered ONE (10:11)
[2024-01-11] MEDS ORDERED: ROCURONIUM BROMIDE 50MG/5ML VIAL As Ordered ONE (10:11)
[2024-01-11] MEDS ORDERED: LIDOCAINE 2% 100MG/5ML SDV (FOR ANES.) As Ordered ONE (10:11)
[2024-01-11] MEDS ORDERED: ONDANSETRON 4MG 2ML VIAL As Ordered ONE (10:11)
[2024-01-11] MEDS ORDERED: MIDAZOLAM INJ 2MG/2ML VIAL As Ordered ONE (10:11)
[2024-01-11] MEDS ORDERED: SUGAMMADEX SODIUM 500 MG/5 ML VIAL (BRIDION) As Ordered ONE (10:12)
[2024-01-11] MEDS ORDERED: ACETAMINOPHEN 1000MG 100ML IV BAG As Ordered ONE (10:12)
[2024-01-11] MEDS ORDERED: KETOROLAC 60MG 2ML VIAL As Ordered ONE (10:12)
[2024-01-11] MEDS: LR 1,000 ML IV SCH (10:33)
[2024-01-11] MEDS: ceFAZolin SOD 2 GM in IV 1 EA IV ONE (10:56)
[2024-01-11] MEDS: SCOPOLAMINE 1MG TRANSDERMAL PATCH As Ordered ONE (11:08)
[2024-01-11] MEDS ORDERED: HYDROMORPHONE HCL 0.5 MG/ 0.5 ML SYRINGE IV PRN (12:10)
[2024-01-11] MEDS ORDERED: LR 1,000 ML IV SCH (12:10)
[2024-01-11] MEDS ORDERED: dexmedeTOMIDine (4MCG/ML)200MCG/50ML BTL (PRECEDEX) As Ordered ONE (12:31)
[2024-01-11] MEDS: ONDANSETRON 4MG 2ML VIAL IV PRN (12:43)
[2024-01-11] MEDS: METOCLOPRAMIDE INJ 10MG/2ML VIAL IV PRN (13:04)
[2024-01-11] MEDS: fentaNYL 100 MCG/2 ML INJECTION IV PRN (13:05)
[2024-01-11] MEDS: oxyCODONE 5MG TAB PO PRN (13:31)
[2024-01-11] MEDS ORDERED: LACTATED RINGER'S 1000 ML IV ONE (14:40)
[2024-01-11] MEDS ORDERED: PROMETHAZINE 25MG/ML 1ML VIAL IV PRN (14:40)
[2024-01-11 15:50] VITALS: BP 143/70; TEMP 97.1; O2SAT 97
== END 2024-01-11 15:50 | disposition home or self-care (01) ==
LOC: M SDC 09:20
PROVIDERS: ATTEND Surgery
DX: K42.9 Umbilical hernia without obstruction or gangrene (principal); E78.00 Pure hypercholesterolemia, unspecified; Z79.899 Other long term (current) drug therapy; Z85.3 Personal history of malignant neoplasm of breast; Z92.21 Personal history of antineoplastic chemotherapy; Z92.3 Personal history of irradiation; Z90.710 Acquired absence of both cervix and uterus; Z88.2 Allergy status to sulfonamides; Z88.0 Allergy status to penicillin; Z88.5 Allergy status to narcotic agent
CPT/HCPCS: 49591; 88302; 93005; C1781; J0131; J0665; J0690; J1100; J1885; J2250; J2405; J2765; J3010

== ENCOUNTER → 2024-03-26 | Outpatient (CLI) | payer MEDICARE, OTHER | LOC: M ONCR 10:17 | PROVIDERS: ATTEND General Practice | DX: Z08 Encounter for follow-up examination after completed treatment for malignant neoplasm (principal); Z85.3 Personal history of malignant neoplasm of breast; Z79.810 Long term (current) use of selective estrogen receptor modulators (SERMs); Z88.0 Allergy status to penicillin; Z88.1 Allergy status to other antibiotic agents; Z88.2 Allergy status to sulfonamides; Z88.5 Allergy status to narcotic agent; Z92.3 Personal history of irradiation ==

== ENCOUNTER → 2024-05-04 | Outpatient (REF) | payer MEDICARE, OTHER ==
[2024-05-04 20:41] LABS: APPEARANCE, URINE CLEAR (CLEAR); BACTERIA, URINE AUTO 1+ (NEGATIVE); BILIRUBIN, URINE AUTO NEGATIVE (NEGATIVE); BLOOD, URINE BLOOD NEGATIVE (NEGATIVE); COLOR, URINE YELLOW (YELLOW); GLUCOSE, URINE (UA) AUTO NEGATIVE (NEGATIVE); KETONE, URINE AUTO NEGATIVE (NEGATIVE); LEUKOCYTE ESTERASE, URINE AUTO NEGATIVE (NEGATIVE); MUCUS, URINE SMALL (NEGATIVE); NITRITE, URINE AUTO NEGATIVE (NEGATIVE); PROTEIN, URINE AUTO NEGATIVE (NEGATIVE); RBC, URINE AUTO 0 /HPF (0-3); SPECIFIC GRAVITY URINE AUTO 1.013 (1.002-1.035); SQUAMOUS EPITHELIAL CELL UR AU 0 /HPF (0-6); WBC, URINE AUTO 1 /HPF (0-3)
== END ==
LOC: M LAB REF 19:51
PROVIDERS: ATTEND Physician Assistant Medical
DX: N39.0 Urinary tract infection, site not specified (principal)

== ENCOUNTER → 2024-05-06 | Outpatient (CLI) | payer MEDICARE, OTHER | LOC: M WHC 09:34 | PROVIDERS: ATTEND Nurse Practitioner | DX: Z13.820 Encounter for screening for osteoporosis (principal); Z85.3 Personal history of malignant neoplasm of breast; M81.0 Age-related osteoporosis without current pathological fracture ==

== ENCOUNTER → 2024-06-21 | Outpatient (CLI) | payer MEDICARE, OTHER | LOC: M WUC 08:59 | PROVIDERS: ATTEND Nurse Practitioner Adult Health | DX: Z87.81 Personal history of (healed) traumatic fracture (principal) ==

== ENCOUNTER → 2024-09-25 | Outpatient (REF) | payer MEDICARE, OTHER ==
[2024-09-25 17:54] LABS: BLOOD UREA NITROGEN 19 MG/DL (9-23); CALCIUM LEVEL 9.1 MG/DL (8.3-10.6); CARBON DIOXIDE LEVEL 26 MMOL/L (20-31); CHLORIDE LEVEL 104 MMOL/L (98-107); CREATININE FOR GFR 0.88 MG/DL (0.55-1.30); GLOMERULAR FILTRATION RATE > 60.0 (>39); GLUCOSE, FASTING 93 MG/DL (74-106); POTASSIUM SERUM 4.5 MMOL/L (3.5-5.1); SODIUM LEVEL 144 MMOL/L (136-145)
== END ==
LOC: M LABWUC 16:29 → M LAB REF 16:29
PROVIDERS: ATTEND Nurse Practitioner Family
DX: M81.0 Age-related osteoporosis without current pathological fracture (principal)

== ENCOUNTER → 2024-10-18 | Outpatient (CLI) | payer MEDICARE, OTHER ==
[2024-10-18 15:14] LABS: HEMATOCRIT 42.8 % (36.0-47.0); HEMOGLOBIN 13.7 g/dl (12.0-15.5); MEAN CORPUSCULAR HEMOGLOBIN 30.3 pg (27.0-33.0); MEAN CORPUSCULAR VOLUME 94.7 fl (80.0-96.0); PLATELET COUNT, AUTOMATED 251 10^3/uL (150-450); RED BLOOD COUNT 4.52 10^6/uL (4.00-5.40); WHITE BLOOD COUNT 6.4 10^3/uL (4.0-10.0)
[2024-10-18 16:27] LABS: ALBUMIN 3.9 G/DL (3.2-5.2); ALKALINE PHOSPHATASE 175 U/L (35-104); ALT/SGPT 21 U/L (7.0-40); AST/SGOT 17 U/L (<34); BILIRUBIN,TOTAL 0.5 MG/DL (0.3-1.2); BLOOD UREA NITROGEN 14 MG/DL (9-23); CALCIUM LEVEL 8.8 MG/DL (8.3-10.6); CARBON DIOXIDE LEVEL 29 MMOL/L (20-31); CHLORIDE LEVEL 107 MMOL/L (98-107); CHOLESTEROL LEVEL 156 MG/DL (<200); CHOLESTEROL RISK RATIO 2.51 (<5); CREATININE FOR GFR 0.83 MG/DL (0.55-1.30); FREE T4 1.04 NG/DL (0.89-1.76); GLOMERULAR FILTRATION RATE > 60.0 (>39); GLUCOSE, FASTING 85 MG/DL (74-106); HDL CHOLESTEROL 62.1 MG/DL (>40); LDL CHOLESTEROL 84.1 MG/DL (<100); NON-HDL-C 93.9 MG/DL; POTASSIUM SERUM 4.4 MMOL/L (3.5-5.1); SODIUM LEVEL 144 MMOL/L (136-145); THYROID STIMULATING HORMONE 2.238 uIU/ML (0.55-4.78); TOTAL 25(OH) VITAMIN D 34.1 NG/ML (20.0-100.0); TOTAL PROTEIN 6.5 G/DL (5.7-8.2); TRIGLYCERIDES LEVEL 49 MG/DL (<150)
== END ==
LOC: M WUC 08:10
DX: I10 Essential (primary) hypertension (principal); E78.5 Hyperlipidemia, unspecified; E55.9 Vitamin D deficiency, unspecified; R53.83 Other fatigue; M81.0 Age-related osteoporosis without current pathological fracture

== ENCOUNTER → 2024-10-18 | Outpatient (CLI) | payer MEDICARE, OTHER ==
[2024-10-18 15:45] LABS: BLOOD UREA NITROGEN 13 MG/DL (9-23); CARBON DIOXIDE LEVEL 28 MMOL/L (20-31); CHLORIDE LEVEL 108 MMOL/L (98-107); CREATININE FOR GFR 0.83 MG/DL (0.55-1.30); GLOMERULAR FILTRATION RATE > 60.0 (>39); GLUCOSE, FASTING 85 MG/DL (74-106); POTASSIUM SERUM 4.4 MMOL/L (3.5-5.1); SODIUM LEVEL 145 MMOL/L (136-145)
== END ==
LOC: M WUC 08:12
PROVIDERS: ATTEND Nurse Practitioner Family
DX: M81.0 Age-related osteoporosis without current pathological fracture (principal)

== ENCOUNTER → 2024-10-21 | Outpatient (CLI) | payer MEDICARE, OTHER | LOC: M WHC 13:35 | DX: Z85.3 Personal history of malignant neoplasm of breast (principal) | CPT/HCPCS: 77066; G0279 ==

== ENCOUNTER → 2024-11-22 | Outpatient (CLI) | payer MEDICARE, OTHER ==
[2024-11-22 13:46] LABS: BLOOD UREA NITROGEN 12 MG/DL (9-23); CARBON DIOXIDE LEVEL 29 MMOL/L (20-31); CHLORIDE LEVEL 108 MMOL/L (98-107); CREATININE FOR GFR 0.86 MG/DL (0.55-1.30); GLOMERULAR FILTRATION RATE > 60.0 (>39); GLUCOSE, FASTING 68 MG/DL (74-106); POTASSIUM SERUM 4.6 MMOL/L (3.5-5.1); SODIUM LEVEL 144 MMOL/L (136-145)
== END ==
LOC: M WUC 09:54
PROVIDERS: ATTEND Nurse Practitioner Family
DX: M81.0 Age-related osteoporosis without current pathological fracture (principal)

== ENCOUNTER → 2024-12-23 | Outpatient (CLI) | payer MEDICARE, OTHER ==
[~2024-12-23] MED LIST changes: +NOXI1TAB PO; +ROMO105S SQ
[2024-12-23 13:53] LABS: CALCIUM LEVEL 9.1 MG/DL (8.3-10.6); CREATININE FOR GFR 0.82 MG/DL (0.55-1.30); GLOMERULAR FILTRATION RATE 76.4 (>39); POTASSIUM SERUM 4.6 MMOL/L (3.5-5.1)
[2024-12-23 13:57] LABS: TOTAL 25(OH) VITAMIN D 47.9 NG/ML (20.0-100.0)
== END ==
LOC: M WUC 08:48
PROVIDERS: ATTEND Nurse Practitioner Family
DX: M81.0 Age-related osteoporosis without current pathological fracture (principal)

== ENCOUNTER → 2025-03-26 | Outpatient (CLI) | payer MEDICARE, OTHER ==
[~2025-03-26] MED LIST changes: -PRAV20TA2 PO; +PRAV20TA78 PO; -PRAV40TA2 PO; +PRAV40TA85 PO
== END ==
LOC: M ONCR 10:17
PROVIDERS: ATTEND General Practice
DX: C50.411 Malignant neoplasm of upper-outer quadrant of right female breast (principal); D05.12 Intraductal carcinoma in situ of left breast; Z17.0 Estrogen receptor positive status [ER+]; Z17.21 Progesterone receptor positive status; Z17.32 Human epidermal growth factor receptor 2 negative status; Z98.890 Other specified postprocedural states; Z92.3 Personal history of irradiation; Z88.0 Allergy status to penicillin; Z88.1 Allergy status to other antibiotic agents; Z88.2 Allergy status to sulfonamides; Z88.5 Allergy status to narcotic agent; Z79.811 Long term (current) use of aromatase inhibitors; Z79.620 Long term (current) use of immunosuppressive biologic; Z79.899 Other long term (current) drug therapy

== ENCOUNTER → 2025-03-28 | Outpatient (CLI) | payer MEDICARE, OTHER ==
[2025-03-28 12:14] LABS: CALCIUM LEVEL 8.9 MG/DL (8.3-10.6); CARBON DIOXIDE LEVEL 28.0 MMOL/L (20-31); CHLORIDE LEVEL 106.0 MMOL/L (98-107); CREATININE FOR GFR 0.89 MG/DL (0.55-1.30); GLOMERULAR FILTRATION RATE 69.3 (>39); POTASSIUM SERUM 4.2 MMOL/L (3.5-5.1); SODIUM LEVEL 144.0 MMOL/L (136-145)
[2025-03-28 12:17] LABS: TOTAL 25(OH) VITAMIN D 47.8 NG/ML (20.0-100.0)
== END ==
LOC: M WUC 08:56
PROVIDERS: ATTEND Nurse Practitioner Family
DX: M81.0 Age-related osteoporosis without current pathological fracture (principal)

== ENCOUNTER → 2025-04-15 | Outpatient (CLI) | payer MEDICARE, OTHER ==
[2025-04-15 12:53] LABS: PLATELET COUNT, AUTOMATED 254 10^3/uL (150-450)
[2025-04-15 13:08] LABS: ALT/SGPT 16.0 U/L (7.0-40); AST/SGOT 20.0 U/L (<34); CALCIUM LEVEL 9.4 MG/DL (8.3-10.6); CARBON DIOXIDE LEVEL 29.0 MMOL/L (20-31); CHLORIDE LEVEL 107.0 MMOL/L (98-107); CHOLESTEROL LEVEL 162.0 MG/DL (<200); CHOLESTEROL RISK RATIO 3.21 (<5); CREATININE FOR GFR 0.84 MG/DL (0.55-1.30); GLOMERULAR FILTRATION RATE 74.3 (>39); LDL CHOLESTEROL 96.2 MG/DL (<100); NON-HDL-C 111.6 MG/DL; POTASSIUM SERUM 4.1 MMOL/L (3.5-5.1); SODIUM LEVEL 144.0 MMOL/L (136-145); TRIGLYCERIDES LEVEL 77.0 MG/DL (<150)
[2025-04-15 13:09] LABS: FREE T4 1.04 NG/DL (0.89-1.76)
[2025-04-15 13:10] LABS: TOTAL 25(OH) VITAMIN D 52.0 NG/ML (20.0-100.0)
== END ==
LOC: M WUC 09:14
DX: E78.5 Hyperlipidemia, unspecified (principal); I10 Essential (primary) hypertension; E55.9 Vitamin D deficiency, unspecified; R53.83 Other fatigue

== ENCOUNTER → 2025-05-02 | Outpatient (CLI) | payer MEDICARE, OTHER ==
[2025-05-02 12:45] LABS: CALCIUM LEVEL 9.1 MG/DL (8.3-10.6); CARBON DIOXIDE LEVEL 28.0 MMOL/L (20-31); CHLORIDE LEVEL 106.0 MMOL/L (98-107); CREATININE FOR GFR 0.83 MG/DL (0.55-1.30); GLOMERULAR FILTRATION RATE 75.3 (>39); POTASSIUM SERUM 4.1 MMOL/L (3.5-5.1); SODIUM LEVEL 144.0 MMOL/L (136-145)
== END ==
LOC: M WUC 09:02
PROVIDERS: ATTEND Nurse Practitioner Family
DX: M81.0 Age-related osteoporosis without current pathological fracture (principal)

== ENCOUNTER → 2025-05-21 | Outpatient (REF) | payer MEDICARE, OTHER ==
[2025-05-21 13:31] LABS: APPEARANCE, URINE CLEAR (CLEAR); BACTERIA, URINE AUTO NEGATIVE (NEGATIVE); BILIRUBIN, URINE AUTO NEGATIVE (NEGATIVE); BLOOD, URINE BLOOD NEGATIVE (NEGATIVE); GLUCOSE, URINE (UA) AUTO NEGATIVE (NEGATIVE); KETONE, URINE AUTO NEGATIVE (NEGATIVE); LEUKOCYTE ESTERASE, URINE AUTO NEGATIVE (NEGATIVE); NITRITE, URINE AUTO NEGATIVE (NEGATIVE); PROTEIN, URINE AUTO NEGATIVE (NEGATIVE); RBC, URINE AUTO 0 /HPF (0-3); SPECIFIC GRAVITY URINE AUTO 1.005 (1.002-1.035); SQUAMOUS EPITHELIAL CELL UR AU 1 /HPF (0-6); UROBILINOGEN, URINE AUTO 0.2 mg/dL (0.0-2.0); WBC, URINE AUTO 1 /HPF (0-3)
== END ==
LOC: M LAB REF 11:41
PROVIDERS: ATTEND Physician Assistant
DX: N39.0 Urinary tract infection, site not specified (principal)

== ENCOUNTER → 2025-06-06 | Outpatient (CLI) | payer MEDICARE, OTHER ==
[2025-06-06 12:30] LABS: CALCIUM LEVEL 9.8 MG/DL (8.3-10.6); CARBON DIOXIDE LEVEL 27.0 MMOL/L (20-31); CHLORIDE LEVEL 107.0 MMOL/L (98-107); CREATININE FOR GFR 0.9 MG/DL (0.55-1.30); GLOMERULAR FILTRATION RATE 68.4 (>39); POTASSIUM SERUM 4.7 MMOL/L (3.5-5.1); SODIUM LEVEL 145.0 MMOL/L (136-145)
== END ==
LOC: M WUC 10:01
PROVIDERS: ATTEND Nurse Practitioner Family
DX: M81.0 Age-related osteoporosis without current pathological fracture (principal)

== ENCOUNTER → 2025-07-08 | Outpatient (CLI) | payer MEDICARE, OTHER ==
[2025-07-08 13:53] LABS: CALCIUM LEVEL 9.4 MG/DL (8.3-10.6); CARBON DIOXIDE LEVEL 30.0 MMOL/L (20-31); CHLORIDE LEVEL 103.0 MMOL/L (98-107); CREATININE FOR GFR 0.86 MG/DL (0.55-1.30); GLOMERULAR FILTRATION RATE 72.2 (>39); POTASSIUM SERUM 4.9 MMOL/L (3.5-5.1); SODIUM LEVEL 142.0 MMOL/L (136-145)
== END ==
LOC: M WUC 09:57
PROVIDERS: ATTEND Nurse Practitioner Family
DX: M81.0 Age-related osteoporosis without current pathological fracture (principal)

== ENCOUNTER → 2025-08-08 | Outpatient (CLI) | payer MEDICARE, OTHER ==
[2025-08-08 12:13] LABS: CALCIUM LEVEL 9.5 MG/DL (8.3-10.6); CARBON DIOXIDE LEVEL 30.0 MMOL/L (20-31); CHLORIDE LEVEL 104.0 MMOL/L (98-107); CREATININE FOR GFR 0.88 MG/DL (0.55-1.30); GLOMERULAR FILTRATION RATE 70.2 (>39); POTASSIUM SERUM 4.6 MMOL/L (3.5-5.1); SODIUM LEVEL 139.0 MMOL/L (136-145)
== END ==
LOC: M WUC 09:07
PROVIDERS: ATTEND Nurse Practitioner Family
DX: M81.0 Age-related osteoporosis without current pathological fracture (principal)